=== PATIENT | female | born 2000 | race Caucasian/White ===

== ENCOUNTER 2023-11-19 20:38 | Emergency (ER) | payer OTHER ==
[2023-11-19 21:03] VITALS: TEMP 97.5
--- NOTE | 2023-11-19 21:04 | ERPHSYRPT ---
- History of Present Illness Time Seen by Provider: 11/19/23 21:03 Source: patient, family Exam Limitations: no limitations Physician History: This is a thin 23-year-old white female patient who presents to the emergency department with right upper quadrant pain that radiates around and through to her back. The pain is worse after eating. Patient has had no prior abdominal surgeries in the past. She has associated vomiting with this pain. Patient denies chest pain. Patient denies shortness of breath. Patient describes the pain as sharp and intermittent. Patient has never been in this emergency department in the past. She does have some anxiety issues. Patient is refusing any type of narcotics but would take an intravenous dose of Toradol. Timing/Duration: yesterday Method of Injury: other Quality: sharp (No injury), stabbing Severity of Pain-Max: mild (Moderate) Severity of Pain-Current: mild (To moderate) Modifying Factors: Improves With: nothing Associated Symptoms: vomiting Previous symptoms: no prior history, no recent treatment Allergies/Adverse Reactions: fentanyl Adverse Reaction (Mild, Verified 11/19/23 20:55) Rapid Heart Beat Home Medications: ALPRAZolam 0.25 MG [xanAX 0.25 MG] 0.25 mg PO DAILY PRN 11/19/23 [History] Travel Risk - International Travel Have you traveled outside of the country in past 3 weeks: No - Emerging Infectious Disease Are you exhibiting symptoms associated with any current EIDs: No - Vaccine Status Hx Covid Vaccintation/Booster/Date Given: No - Review of Systems Constitutional: No Symptoms Eyes: No Symptoms Ears, Nose, & Throat: No Symptoms Respiratory: No Symptoms Cardiac: No Symptoms Abdominal/Gastrointestinal: Abdominal Pain (Right upper quadrant), Nausea, Vomiting, Appetite Changes Genitourinary Symptoms: No Symptoms Musculoskeletal: No Symptoms Skin: No Symptoms Neurological: No Symptoms Psychological: No Symptoms Endocrine: No Symptoms Hematologic/Lymphatic: No Symptoms Immunological/Allergic: No Symptoms All Other Systems: Reviewed and Negative - Past Medical History Pertinent Past Medical History: No - Past Surgical History Past Surgical History: No - Nursing Vital Signs Nursing Vital Signs: Initial Vital Signs Temperature 97.5 F 11/19/23 20:55 Pulse Rate 100 H 11/19/23 20:55 Respiratory Rate 18 11/19/23 20:55 Blood Pressure 147/85 11/19/23 20:55 O2 Sat by Pulse Oximetry 99 11/19/23 20:55 Pain Scale Pain Intensity 7 - Physical Exam General Appearance: no apparent distress, alert, anxiety, thin Eye Exam: PERRL/EOMI, eyes nml inspection Ears, Nose, Throat Exam: normal ENT inspection, moist mucous membranes Neck Exam: normal inspection, non-tender, supple, full range of motion Respiratory Exam: normal breath sounds, lungs clear, airway intact, No chest tenderness, No respiratory distress Cardiovascular Exam: regular rate/rhythm, normal heart sounds, normal peripheral pulses Gastrointestinal Exam: soft, normal bowel sounds, tenderness (Right upper quadrant mild to palpation), No guarding, No rebound Pelvic Exam: not done Rectal Exam: not done Back Exam: normal inspection, normal range of motion, No CVA tenderness, No vertebral tenderness Extremity Exam: normal inspection, normal range of motion, pelvis stable Neurologic Exam: alert, oriented x 3, cooperative, gm video II-XII nml as tested, normal mood/affect, nml cerebellar function, nml station & gait, sensation nml Skin Exam: normal color, warm, dry Lymphatic Exam: No adenopathy SpO2 Interpretation: normal O2 Delivery: Room Air - Course Nursing assessment & vital signs reviewed: Yes Ordered Tests: Active Orders 24 hr Category Date Time Status IV Insertion STAT Care 11/19/23 21:20 Active ABDOMEN AND PELVIS W/0 CONTRAS [CT] Stat Exams 11/19/23 21:20 Completed AMYLASE Stat Lab 11/19/23 21:09 Completed CBC W DIFF Stat Lab 11/19/23 21:09 Completed CMP Stat Lab 11/19/23 21:09 Completed HCG QUALITATIVE, SERUM Stat Lab 11/19/23 21:09 Completed LIPASE Stat Lab 11/19/23 21:09 Completed UA W/RFX UR CULTURE Stat Lab 11/19/23 21:09 Completed Medication Summary Discontinued Medications Generic Name Dose Route Start Last Admin Trade Name Freq PRN Reason Stop Dose Admin Sodium Chloride 1,000 mls @ 999 mls/hr 11/19/23 21:20 11/19/23 22:48 Sodium Chloride 0.9% 1000 Ml IV 11/19/23 22:20 Infused .Q1H1M STA Infusion Sodium Chloride Confirm 11/19/23 21:33 Sodium Chloride 0.9% 1000 Ml Administered 11/19/23 21:34 Dose 1,000 mls @ ud .ROUTE .STK-MED ONE Ketorolac Tromethamine 30 mg 11/19/23 21:51 11/19/23 21:56 Ketorolac Tromethamine 30 Mg/Ml Inj IV 11/19/23 21:52 30 mg STAT ONE Administration Ketorolac Tromethamine Confirm 11/19/23 21:54 Ketorolac Tromethamine 30 Mg/Ml Inj Administered 11/19/23 21:55 Dose 30 mg .ROUTE .STK-MED ONE Ondansetron HCl 4 mg 11/19/23 21:20 11/19/23 21:38 Ondansetron Hcl 4 Mg/2 Ml Vial IV 11/19/23 21:21 4 mg STAT ONE Administration Ondansetron HCl Confirm 11/19/23 21:33 Ondansetron Hcl 4 Mg/2 Ml Vial Administered 11/19/23 21:34 Dose 4 mg .ROUTE .STK-MED ONE Lab/Rad Data: Laboratory Result Diagrams 11/19/23 21:09 11/19/23 21:09 Laboratory Results 11/19/23 11/19/23 11/19/23 Range/Units 21:09 21:09 21:09 WBC 2.9 L (4.0-10.5) x10^3/uL RBC 4.88 (4.1-5.4) x10^6/uL Hgb 11.9 L (12.0-16.0) g/dL Hct 38.7 (35-47) % MCV 79.3 (78-100) fL MCH 24.4 L (26-32) pg MCHC 30.7 L (32-36) g/dL RDW 16.2 H (11.5-14.0) % Plt Count 144 L (150-450) x10^3/uL MPV 11.6 H (7.5-11.0) fL Gran % 58.2 (36.0-66.0) % Immature Gran % (Auto) 0.0 (0.00-0.4) % Nucleat RBC Rel Count 0.0 (0.00-0.1) % Eos # (Auto) 0.05 (0-0.5) x10^3/uL Immature Gran # (Auto) 0.00 (0.00-0.03) x10^3u/L Absolute Lymphs (auto) 0.90 L (1.0-4.6) x10^3/uL Absolute Monos (auto) 0.23 (0.0-1.3) x10^3/uL Absolute Nucleated RBC 0.00 (0.00-0.01) x10^3u/L Lymphocytes % 31.1 (24.0-44.0) % Monocytes % 8.0 (0.0-12.0) % Eosinophils % 1.7 (0.00-5.0) % Basophils % 1.0 (0.0-0.4) % Absolute Granulocytes 1.68 (1.4-6.9) x10^3/uL Basophils # 0.03 (0-0.4) x10^3/uL Sodium 142 (135-145) mmol/L Potassium 3.6 (3.5-5.1) mmol/L Chloride 107 (98-107) mmol/L Carbon Dioxide 24 (22-30) mmol/L Anion Gap 14.5 (5-15) MEQ/L BUN 5 L (7-17) mg/dL Creatinine 0.63 (0.52-1.04) mg/dL Estimated GFR 127.0 ML/MIN Glucose 100 (74-106) mg/dL Calcium 9.2 (8.4-10.2) mg/dL Total Bilirubin 0.20 (0.2-1.3) mg/dL AST 28 (14-36) U/L ALT 23 (0-35) U/L Alkaline Phosphatase 77 (38-126) U/L Serum Total Protein 8.0 (6.3-8.2) g/dL Albumin 4.6 (3.5-5.0) g/dL Amylase 72 (30-110) U/L Lipase 72 (23-300) U/L Serum HCG, Qual NEGATIVE (NEGATIVE) Urine Color (Yellow) Urine Appearance (Clear) Urine pH (4.6-8.0) Ur Specific [place] (1.005-1.030) Urine Protein (Negative) Urine Glucose (UA) (Negative) mg/dL Urine Ketones (Negative) Urine Blood (Negative) Urine Nitrite (Negative) Urine Bilirubin (Negative) Urine Urobilinogen (0.2) mg/dL Ur Leukocyte Esterase (Negative) U Hyaline Cast (Auto) (0-2) /LPF Urine Microscopic RBC (0-5) /HPF Urine Microscopic WBC (0-5) /HPF Ur Epithelial Cells (None Seen) /HPF Urine Bacteria (None Seen) /HPF Urine Culture Reflexed (NO) 11/19/23 Range/Units 21:09 WBC (4.0-10.5) x10^3/uL RBC (4.1-5.4) x10^6/uL Hgb (12.0-16.0) g/dL Hct (35-47) % MCV (78-100) fL MCH (26-32) pg MCHC (32-36) g/dL RDW (11.5-14.0) % Plt Count (150-450) x10^3/uL MPV (7.5-11.0) fL Gran % (36.0-66.0) % Immature Gran % (Auto) (0.00-0.4) % Nucleat RBC Rel Count (0.00-0.1) % Eos # (Auto) (0-0.5) x10^3/uL Immature Gran # (Auto) (0.00-0.03) x10^3u/L Absolute Lymphs (auto) (1.0-4.6) x10^3/uL Absolute Monos (auto) (0.0-1.3) x10^3/uL Absolute Nucleated RBC (0.00-0.01) x10^3u/L Lymphocytes % (24.0-44.0) % Monocytes % (0.0-12.0) % Eosinophils % (0.00-5.0) % Basophils % (0.0-0.4) % Absolute Granulocytes (1.4-6.9) x10^3/uL Basophils # (0-0.4) x10^3/uL Sodium (135-145) mmol/L Potassium (3.5-5.1) mmol/L Chloride (98-107) mmol/L Carbon Dioxide (22-30) mmol/L Anion Gap (5-15) MEQ/L BUN (7-17) mg/dL Creatinine (0.52-1.04) mg/dL Estimated GFR ML/MIN Glucose (74-106) mg/dL Calcium (8.4-10.2) mg/dL Total Bilirubin (0.2-1.3) mg/dL AST (14-36) U/L ALT (0-35) U/L Alkaline Phosphatase (38-126) U/L Serum Total Protein (6.3-8.2) g/dL Albumin (3.5-5.0) g/dL Amylase (30-110) U/L Lipase (23-300) U/L Serum HCG, Qual (NEGATIVE) Urine Color Yellow (Yellow) Urine Appearance Clear (Clear) Urine pH 8.0 (4.6-8.0) Ur Specific [place] <=1.005 (1.005-1.030) Urine Protein Negative (Negative) Urine Glucose (UA) Negative (Negative) mg/dL Urine Ketones Negative (Negative) Urine Blood Negative (Negative) Urine Nitrite Negative (Negative) Urine Bilirubin Negative (Negative) Urine Urobilinogen 0.2 (0.2) mg/dL Ur Leukocyte Esterase Negative (Negative) U Hyaline Cast (Auto) NONE SEEN (0-2) /LPF Urine Microscopic RBC 0-2 (0-5) /HPF Urine Microscopic WBC 0-2 (0-5) /HPF Ur Epithelial Cells None Seen (None Seen) /HPF Urine Bacteria None Seen (None Seen) /HPF Urine Culture Reflexed NO (NO) - Progress Progress: improved, pain not gone completely, re-examined Progress Note: 11/19/23 23:08 This patient medical issue is 1 of moderate complexity. The level complex in the workup performed is based on review the patient's past medical history, review the patient's medication list, review patient drug allergy list, history present illness and physical findings on examination. Workup includes placement of intravenous line, infusion Normal Saline solution, infusion of Zofran, infusion of Toradol, CBC, CMP, test, urinalysis, amylase and lipase level, CT scan abdomen pelvis without contrast. 11/19/23 23:51 I interpreted the laboratory data test results. Patient's liver function test, amylase and lipase are within normal limits. Her urinalysis shows no evidence of dehydration or infection. She does have unexplained leukopenia and thrombocytopenia. There is no acute or emergent findings on today's laboratory data results. I reviewed these findings with the patient and she will follow-up on the leukopenia and thrombocytopenia test results. CT scan of the abdomen and pelvis without contrast was performed and interpreted by the radiologist and I reviewed the impression. The impression states no significant acute abnormalities. The gallbladder is not visualized.? Contracted gallbladder. The appendix is not visualized but there are no prominent inflammatory changes within the right lower quadrant. Counseled pt/family regarding: lab results, diagnosis, need for follow-up, rad results Medical Desision Making - Independent Historian Additional History obtained from: Spouse - Diagnostic Testing Radiological Interpretation: Reviewed by me, Teleradiologist Report - Risk of complications The pt has a mod risk of morbidity or mortality based on: Need for prescription drug management - Departure Departure Disposition: Home Clinical Impression: Right upper quadrant abdominal pain, Nausea, Leukopenia, Thrombocytopenia Condition: Stable Critical Care Time: No Referrals: PRATIBHA MALDONADO SKI MAKER [Primary Care Provider] - Follow up/PCP as directed Additional Instructions: Drink plenty of fluids. Avoid fatty greasy spicy foods. Use Tylenol and ibuprofen for pain control. Call your primary care provider on 11/22/2023, to make arranges for follow-up appointment for further evaluation management in the next 3 to 5 days.
[2023-11-19 21:32] LABS: Appearance Clear (Clear); Bacteria None Seen /HPF (None Seen); Bilirubin Negative (Negative); Blood Negative (Negative); Epithelial Cells None Seen /HPF (None Seen); Glucose, Urine Negative (Negative); Hyaline Casts NONE SEEN /LPF (0-2); Ketones Negative (Negative); Leukocyte Esterase Negative (Negative); Nitrite Negative (Negative); Protein,Urine Dip Negative (Negative); RBC 0-2 /HPF (0-5); Specific Gravity <=1.005 (1.005-1.030); Urobilinogen 0.2 mg/dL (0.2); WBC 0-2 /HPF (0-5)
[2023-11-19] MEDS ORDERED: Sodium Chloride 0.9% 1000 ML 1,000 ML ONE (21:33)
[2023-11-19] MEDS ORDERED: Zofran 4 MG/2 ML VIAL ONE (21:33)
[2023-11-19] MEDS: Sodium Chloride 0.9% 1000 ML 1,000 ML IV STA (21:37)
[2023-11-19] MEDS: Zofran 4 MG/2 ML VIAL IV ONE (21:38)
[2023-11-19 21:39] LABS: Absolute Neutrophil Ct (ANC) 1.68 x10^3/uL (1.4-6.9); Basophil (Absolute #) 0.03 x10^3/uL (0-0.4); Eosinophil % 1.7 % (0.00-5.0); Eosinophil (Absolute #) 0.05 x10^3/uL (0-0.5); Hematocrit 38.7 % (35-47); Hemoglobin 11.9 g/dL (12.0-16.0); Lymphocytes % 31.1 % (24.0-44.0); Mean Cell Volume 79.3 fL (78-100); Mean Corpuscular Hemoglobin 24.4 pg (26-32); Mean Corpuscular Hgb Concent. 30.7 g/dL (32-36); Mean Platelet Volume 11.6 fL (7.5-11.0); Monocyte (Absolute #) 0.23 x10^3/uL (0.0-1.3); Neutrophil % 58.2 % (36.0-66.0); Platelet Count 144 x10^3/uL (150-450); Red Blood Count 4.88 x10^6/uL (4.1-5.4); Red Cell Distribution Width 16.2 % (11.5-14.0); White Blood Count 2.9 x10^3/uL (4.0-10.5)
[2023-11-19 21:40] LABS: ADD URINE CULTURE? NO (NO)
[2023-11-19 21:45] VITALS: RESP 17
[2023-11-19 21:50] LABS: ALBUMIN 4.6 g/dL (3.5-5.0); ANION GAP 14.5 MEQ/L (5-15); BILIRUBIN,TOTAL 0.2 mg/dL (0.2-1.3); Calcium 9.2 mg/dL (8.4-10.2); Creatinine 1 0.63 mg/dL (0.52-1.04); Potassium 3.6 mmol/L (3.5-5.1)
[2023-11-19] MEDS ORDERED: TORAdol 30 mg Injection ONE (21:54)
[2023-11-19] MEDS: TORAdol 30 mg Injection IV ONE (21:56)
[2023-11-19 21:58] LABS: HCG SERUM TEST NEGATIVE (NEGATIVE)
--- NOTE | 2023-11-19 22:58 | XRAY ---
CLINICAL HISTORY: RUQ ABD pain; N/V TECHNIQUE: A CT scan of the abdomen was performed without IV contrast, Coronal and sagittal reconstructive images were also obtained. One of the following dose reduction techniques were utilized for this exam: Automated exposure control, adjustment of the mA and/or kV according to patient size, use of iterative reconstruction COMPARISON: None FINDINGS: Limited organ parenchymal evaluation within the limitations of non-contrast study. Lung bases are unremarkable. The liver is normal in size without focal parenchymal abnormality. The intrahepatic biliary radicals and the bile ducts are normal. Gallbladder is not identified, possibly contracted. The spleen, pancreas, and adrenal glands are unremarkable. The kidneys are unremarkable. They are normal in size and shape. No calculi or hydronephrosis is seen. The ascending colon, the transverse colon, the descending colon, visualized small bowel loops are unremarkable. There is no evidence of significant enlargement of the mesenteric or retroperitoneal lymph nodes. The osseous structures in the lower rib cage and lumbar spine show no abnormality. The appendix is not identified however there is no prominent inflammation findings on the right lower quadrant. Pelvis: The urinary bladder is unremarkable. The rectosigmoid colon is unremarkable. The uterus and ovaries are grossly unremarkable. The pelvic vasculature is unremarkable. No evidence of pelvic lymphadenopathy. No definite bony abnormalities could be depicted. IMPRESSION: 1. No significant acute abnormalities seen. 2. The appendix is not identified in the current study, and although there are no prominent inflammation findings within the right lower quadrant, ultrasound may be considered if there is a clinical suspicion. Electronically Signed by: Gely Perdomo MD. (11/19/2023 22:53:56 EDT)
[2023-11-19 23:28] VITALS: O2SAT 99
[2023-11-20 00:03] VITALS: BP 101/75; PULSE 82
== END 2023-11-20 00:18 | disposition home or self-care (01) ==
LOC: ED 20:38
DX: R10.11 Right upper quadrant pain (principal); R11.0 Nausea; D72.819 Decreased white blood cell count, unspecified; D69.6 Thrombocytopenia, unspecified; Z79.899 Other long term (current) drug therapy; Z28.310 Unvaccinated for COVID-19
CPT/HCPCS: 36000; 36415; 74176; 80053; 81001; 82150; 83690; 84703; 85025; 96374; 96375; 99284; J1885; J2405

== ENCOUNTER 2024-01-10 19:58 | Emergency (ER) | payer OTHER ==
--- NOTE | 2024-01-10 20:05 | ERPHSYRPT ---
- History of Present Illness Time Seen by Provider: 01/10/24 20:04 Source: patient Exam Limitations: no limitations Physician History: This is a thin 23-year-old white female patient who presents with left rib pain for approximately 6 days. Patient denies fall or trauma to the area. Patient does have a history anxiety issue. She is a former smoker of cigarettes. She denies cough. She denies shortness of breath. She has no chest pain. She has been having intermittent fevers. Patient has difficulty swallowing even average sized tablets/capsules Timing/Duration: day(s) (6) Severity: mild Modifying Factors: Improves With: movement (Moderate) Associated Symptoms: denies symptoms Allergies/Adverse Reactions: fentanyl Adverse Reaction (Mild, Verified 01/10/24 20:10) Rapid Heart Beat Home Medications: ALPRAZolam 0.25 MG [xanAX 0.25 MG] 0.25 mg PO DAILY PRN 11/19/23 [History] Esomeprazole Magnesium [Nexium] 20 mg PO DAILY 01/10/24 [History] Famotidine 20 mg PO DAILY 01/10/24 [History] Hx Tetanus, Diphtheria Vaccination/Date Given: No Hx Influenza Vaccination/Date Given: No Hx Pneumococcal Vaccination/Date Given: No Travel Risk - Emerging Infectious Disease Are you exhibiting symptoms associated with any current EIDs: No Symptoms: Abdominal Pain, Vomitting - Review of Systems Constitutional: No Symptoms Eyes: No Symptoms Ears, Nose, & Throat: No Symptoms Respiratory: No Symptoms Cardiac: No Symptoms Abdominal/Gastrointestinal: No Symptoms Genitourinary Symptoms: No Symptoms Musculoskeletal: No Symptoms Skin: No Symptoms Neurological: No Symptoms Psychological: No Symptoms Endocrine: No Symptoms Hematologic/Lymphatic: No Symptoms Immunological/Allergic: No Symptoms All Other Systems: Reviewed and Negative - Past Medical History Pertinent Past Medical History: No Neurological History: No Pertinent History ENT History: No Pertinent History Cardiac History: Arrhythmia Respiratory History: Asthma Endocrine Medical History: No Pertinent History Musculoskeletal History: No Pertinent History GI Medical History: GERD, Irritable Bowel History: No Pertinent History Psycho-Social History: Anxiety, Bipolar, Panic Disorder Female Reproductive Disorders: No Pertinent History Other Medical History: anemia, tachycardia, PTSD - Past Surgical History Past Surgical History: No Neuro Surgical History: No Pertinent History Cardiac: No Pertinent History Respiratory: No Pertinent History Gastrointestinal: No Pertinent History Genitourinary: No Pertinent History Musculoskeletal: No Pertinent History Female Surgical History: No Pertinent History Other Surgical History: endoscopy - Social History Smoking Status: Former smoker Exposure to second hand smoke: Yes Drug Use: none - Nursing Vital Signs Nursing Vital Signs: Initial Vital Signs Temperature 99.2 F 01/10/24 20:13 Pulse Rate 102 H 01/10/24 20:13 Respiratory Rate 14 01/10/24 20:13 Blood Pressure 130/88 01/10/24 20:13 O2 Sat by Pulse Oximetry 100 01/10/24 20:13 Pain Scale Pain Intensity 7 - Physical Exam General Appearance: no apparent distress, alert, anxiety, thin Eye Exam: PERRL/EOMI, eyes nml inspection Ears, Nose, Throat Exam: normal ENT inspection, moist mucous membranes Neck Exam: normal inspection, non-tender, supple, full range of motion Respiratory Exam: normal breath sounds, lungs clear, airway intact, No chest tenderness, No respiratory distress Cardiovascular Exam: regular rate/rhythm, normal heart sounds, normal peripheral pulses Gastrointestinal/Abdomen Exam: soft, normal bowel sounds, No tenderness, No guarding Pelvic Exam: not done Rectal Exam: not done Back Exam: normal inspection, normal range of motion, No CVA tenderness, No vertebral tenderness Extremity Exam: normal inspection, normal range of motion, pelvis stable Neurologic Exam: alert, oriented x 3, cooperative, ceramic restorer II-XII nml as tested, nml cerebellar function, nml station & gait, sensation nml Skin Exam: normal color, warm, dry Lymphatic Exam: No adenopathy SpO2 Interpretation: normal O2 Delivery: Room Air - Course Nursing assessment & vital signs reviewed: Yes Ordered Tests: Active Orders 24 hr Category Date Time Status CHEST 2 VIEWS (PA AND LAT) Stat Exams 01/10/24 21:42 Taken Medication Summary Discontinued Medications Generic Name Dose Route Start Last Admin Trade Name Freq PRN Reason Stop Dose Admin Amoxicillin 500 mg 01/10/24 23:09 Amoxicillin Trihydrate 250 Mg/5 Ml Bottle PO 01/10/24 23:10 STAT ONE Ketorolac Tromethamine 10 mg 01/10/24 23:10 Ketorolac Tromethamine 10 Mg Tablet PO 01/10/24 23:11 STAT ONE Ondansetron HCl 4 mg 01/10/24 23:10 Zofran 4 Mg/Udtablet Orally Disintegrating PO 01/10/24 23:11 STAT ONE - Progress Progress: unchanged, pain not gone completely, re-examined Progress Note: 01/10/24 22:34 My medical decision making and the assignment of low complexity to this patient's medical issue today is based on review of the patient's past medical history, review of patient's medication list, reviewed patient's drug allergy list, history present illness and physical findings on examination. The workup in this patient includes 2 view chest x-ray. The differential diagnosis includes pneumonia, rib fracture, rib contusion. 01/10/24 23:12 I interpreted the patient's chest x-ray. I do not appreciate any rib fractures. There is no evidence of pneumothorax. There is no acute cardiopulmonary processes. This patient has had intermittent fevers and has left lower rib pain. She also has intermittent, chronic vomiting episodes. She is out of her Zofran. We will remotely send a prescription of Zofran, Toradol and amoxicillin suspension to her pharmacy. Counseled pt/family regarding: diagnosis, need for follow-up, rad results Medical Desision Making - Diagnostic Testing Diagnostic test were ordered, analyzed, and reviewed by me: Yes Radiological Interpretation: Interpreted by me - Risk of complications The pt has a mod risk of morbidity or mortality based on: Need for prescription drug management - Departure Departure Disposition: Home Clinical Impression: Fever, Vomiting, Rib pain on left side Condition: Stable Critical Care Time: No Referrals: PRATIBHA MALDONADO [employer] SEAMAN [Primary Care Provider] - Follow up/PCP as directed Additional Instructions: Drink plenty of clear liquids. Take your medications as prescribed. Call your prescribing provider tomorrow, 01/11/2024, to make arrangements for further evaluation and management and to be seen in approximately 3 to 5 days Prescriptions: Ondansetron ODT 4 MG [Zofran Odt 4 mg] 4 mg PO Q6H PRN PRN #10 tablet PRN Reason: Vomiting Amoxicillin 250 mg/5 ml [Amoxil 250 mg/5 ml] 500 mg PO TID #210 ml Ketorolac Trometh 10 mg Tab [TORAdol 10 MG TABLET] 10 mg PO QID #16 tablet
[2024-01-10 20:21] VITALS: RESP 14; TEMP 99.2
[2024-01-10] MEDS ORDERED: AMOXIL 250 MG/5 ML ONE (23:14)
[2024-01-10] MEDS ORDERED: ZOFRAN ODT 4 MG ONE (23:14)
[2024-01-10] MEDS: ZOFRAN ODT 4 MG PO ONE (23:20)
[2024-01-10] MEDS: AMOXIL 250 MG/5 ML PO ONE (23:20)
[2024-01-10] MEDS: TORAdol 10 MG TABLET PO ONE (23:26)
[2024-01-10 23:31] VITALS: BP 124/82; PULSE 84; O2SAT 100
--- NOTE | 2024-01-11 07:56 | XRAY ---
Indication: Rib pain Comparison: None PA/lateral chest hyperinflated and clear. Heart and mediastinal structures within normal limits. Bony thorax intact with mild levoscoliosis centered at T4. Impression: Nonacute hyperinflated chest. Incidental scoliosis.
== END 2024-01-10 23:42 | disposition home or self-care (01) ==
LOC: ED 19:58
DX: R50.9 Fever, unspecified (principal); R11.2 Nausea with vomiting, unspecified; R07.81 Pleurodynia; Z79.899 Other long term (current) drug therapy
CPT/HCPCS: 71046; 99283; Q0162; A9270-GY

== ENCOUNTER 2024-07-06 19:34 | Emergency (ER) | payer OTHER ==
[2024-07-06 19:58] VITALS: TEMP 97.7
[2024-07-06] MEDS ORDERED: Sodium Chloride 0.9% 1000 ML 1,000 ML ONE (20:08)
[2024-07-06] MEDS: Sodium Chloride 0.9% 1000 ML 1,000 ML IV STA (20:09)
--- NOTE | 2024-07-06 20:10 | ERPHSYRPT ---
- History of Present Illness Time Seen by Provider: 07/06/24 20:04 Source: patient Exam Limitations: no limitations Patient Subjective Stated Complaint: dizziness, tachycardia x3 days, pt states she is dizzy all time but worse when standing up. pt states she is normally ta chycardiac in the 110s but states her HR has been in the 140s, pt states she is eating and drinking normally, pt states she is bruising "a lot easier than normal" and has been low on iron before and believes that is what is causing her symptoms, pt has had iron infusions in the past. pt ended her period about 2 days and stated she had heavy bleeding throughout the cycle Triage Nursing Assessment: pt ambulatory to bed by self, fiance at bedside, pt alert and oriented x3, skin pale, warm and dry. pt denies any pain, c/o dizziness worse with movment. HR 90-110s during triage. afebrile, fsbs 102 Physician History: 24-year-old female presents to emergency department complaining of some dizziness. Patient states dizziness is worse upon transition, sit to stand. Patient states she has a history of POTS. Patient reports a baseline level tachycardia however she states her heart rate has been higher than normal. Heart rate has been up in the 140s which is unusual for her. No chest pain or shortness of breath. No history of thyroid disease. Patient admits to history of iron deficiency anemia. Patient also reports that she just completed a heavy menstrual cycle. Patient concerned with the amount of blood loss contributing to her current symptomology. Patient added that she had noticed increased bruising in her lower extremities. No other complaints. Patient otherwise feels well significant other at bedside they voiced no other complaints or concerns at this time. Portions of this note were created with voice recognition technology. There may be grammatical, spelling, punctuation or sound alike errors Timing/Duration: day(s) (3 days) Severity: moderate Modifying Factors: Improves With: nothing Associated Symptoms: denies symptoms Allergies/Adverse Reactions: fentanyl Adverse Reaction (Mild, Verified 07/06/24 19:48) Rapid Heart Beat Home Medications: ALPRAZolam 0.25 MG [xanAX 0.25 MG] 0.25 mg PO DAILY PRN 11/19/23 [History] Omeprazole 20 mg PO DAILY 07/06/24 [History] Hx Tetanus, Diphtheria Vaccination/Date Given: Yes Hx Influenza Vaccination/Date Given: No Hx Pneumococcal Vaccination/Date Given: No Travel Risk - International Travel Have you traveled outside of the country in past 3 weeks: No - Emerging Infectious Disease Are you exhibiting symptoms associated with any current EIDs: No Symptoms: Abdominal Pain, Vomitting - Review of Systems Constitutional: No Symptoms, No Fever, No Chills Eyes: No Symptoms Ears, Nose, & Throat: No Symptoms Respiratory: No Symptoms, No Cough, No Dyspnea Cardiac: No Symptoms, No Chest Pain, No Edema, No Syncope Abdominal/Gastrointestinal: No Symptoms, No Abdominal Pain, No Nausea, No Vomiting, No Diarrhea Genitourinary Symptoms: No Symptoms, No Dysuria Musculoskeletal: No Symptoms, No Back Pain, No Neck Pain Skin: No Symptoms, No Rash Neurological: No Symptoms, No Dizziness, No Focal Weakness, No Sensory Changes Psychological: No Symptoms Endocrine: No Symptoms Hematologic/Lymphatic: No Symptoms Immunological/Allergic: No Symptoms All Other Systems: Reviewed and Negative - Past Medical History Pertinent Past Medical History: Yes Neurological History: No Pertinent History ENT History: No Pertinent History Cardiac History: Arrhythmia Respiratory History: Asthma Endocrine Medical History: Hypoglycemia Musculoskeletal History: No Pertinent History GI Medical History: GERD, Irritable Bowel History: No Pertinent History Psycho-Social History: Anxiety, Bipolar, Panic Disorder Female Reproductive Disorders: No Pertinent History Other Medical History: anemia, tachycardia, PTSD, nutcracker syndrome - Past Surgical History Past Surgical History: No Neuro Surgical History: No Pertinent History Cardiac: No Pertinent History Respiratory: No Pertinent History Gastrointestinal: No Pertinent History Genitourinary: No Pertinent History Musculoskeletal: No Pertinent History Female Surgical History: No Pertinent History Other Surgical History: endoscopy - Female History Hx Last Menstrual Period: 07/04/24 Hx Now: No - Social History Smoking Status: Current every day smoker Exposure to second hand smoke: Yes Drug Use: none - Social Determinants of Health Will the patient participate in the screening: Declined to provide - Nursing Vital Signs Nursing Vital Signs: Initial Vital Signs Temperature 97.7 F 07/06/24 19:48 Pulse Rate 107 H 07/06/24 19:48 Respiratory Rate 17 07/06/24 19:48 Blood Pressure 129/93 07/06/24 19:48 O2 Sat by Pulse Oximetry 100 07/06/24 19:48 Pain Scale Pain Intensity 0 - Physical Exam General Appearance: no apparent distress, alert Eye Exam: PERRL/EOMI, eyes nml inspection Ears, Nose, Throat Exam: normal ENT inspection, TMs normal, pharynx normal, moist mucous membranes Neck Exam: normal inspection, non-tender, supple, full range of motion Respiratory Exam: normal breath sounds, lungs clear, airway intact, No respiratory distress Cardiovascular Exam: regular rate/rhythm, normal heart sounds, normal peripheral pulses Gastrointestinal/Abdomen Exam: soft, normal bowel sounds, No tenderness, No mass Back Exam: normal inspection, normal range of motion, No CVA tenderness, No vertebral tenderness Extremity Exam: normal inspection, normal range of motion, pelvis stable, other (Healing bruises anterior freeman area and at the dorsum of her right foot. Extremities are neurovascular intact distally compartments are soft cap refill less than 2 seconds) Neurologic Exam: alert, oriented x 3, cooperative, normal mood/affect, nml cerebellar function, nml station & gait, sensation nml, No motor deficits Skin Exam: normal color, warm, dry, No rash Lymphatic Exam: No adenopathy SpO2 Interpretation: normal SpO2: 100 O2 Delivery: Room Air - Course Nursing assessment & vital signs reviewed: Yes EKG Interpreted by Me: RATE (95), Sinus Rhythm, NORMAL AXIS, NORMAL INTERVALS, NORMAL QRS Ordered Tests: Active Orders 24 hr Category Date Time Status Mobility Developer STAT Care 07/06/24 20:05 Active EKG-ER Only STAT Care 07/06/24 20:05 Active IV Insertion STAT Care 07/06/24 20:05 Active Pulse Oximetry (ED) STAT Care 07/06/24 20:05 Active CBC W DIFF Stat Lab 07/06/24 20:21 Completed CMP Stat Lab 07/06/24 20:21 Completed POCT GLUCOSE Stat Lab 07/06/24 19:52 Completed PROTIME WITH INR Stat Lab 07/06/24 20:21 Completed PTT Stat Lab 07/06/24 20:21 Completed TROPONIN Q4H Lab 07/06/24 20:21 Completed TROPONIN Q4H Lab 07/07/24 00:15 Ordered TROPONIN Q4H Lab 07/07/24 04:15 Ordered TROPONIN Stat Lab 07/06/24 21:55 Completed TSH [TSH, 3RD Generation] Stat Lab 07/06/24 20:21 Completed UA W/RFX UR CULTURE Stat Lab 07/06/24 20:08 Completed Medication Summary Discontinued Medications Generic Name Dose Route Start Last Admin Trade Name Bianca PRN Reason Stop Dose Admin Sodium Chloride 1,000 mls @ 999 mls/hr 07/06/24 20:05 07/06/24 21:10 Sodium Chloride 0.9% 1000 Ml IV 07/06/24 21:05 Infused .Q1H1M STA Infusion Sodium Chloride Confirm 07/06/24 20:08 Sodium Chloride 0.9% 1000 Ml Administered 07/06/24 20:09 Dose 1,000 mls @ ud .ROUTE .STK-MED ONE Potassium Chloride 40 meq 07/06/24 21:47 07/06/24 21:57 Potassium Chloride Tab 10 Meq Tab PO 07/06/24 21:48 40 meq STAT ONE Administration Potassium Chloride Confirm 07/06/24 21:56 Potassium Chloride Tab 10 Meq Tab Administered 07/06/24 21:57 Dose 40 meq .ROUTE .STK-MED ONE Lab/Rad Data: Laboratory Result Diagrams 07/06/24 20:21 07/06/24 20:21 Laboratory Results 07/06/24 07/06/24 07/06/24 Range/Units 21:55 20:21 20:21 WBC (3.98-10.04) x10^3/uL RBC (3.93-5.22) x10^6/uL Hgb (11.2-15.7) g/dL Hct (34.1-44.9) % MCV (79.4-94.8) fL MCH (25.6-32.2) pg MCHC (32.2-35.5) g/dL RDW (11.7-14.4) % Plt Count (182-369) x10^3/uL MPV (9.4-12.3) fL Gran % (34.0-71.1) % Immature Gran % (Auto) (0.001-0.429) % Nucleat RBC Rel Count (0.00-0.2) % Eos # (Auto) (0.04-0.36) x10^3/uL Immature Gran # (Auto) (0.001-0.031) x10^3u/L Absolute Lymphs (auto) (1.18-3.74) x10^3/uL Absolute Monos (auto) (0.24-0.86) x10^3/uL Absolute Nucleated RBC (0.00-0.012) x10^3u/L Lymphocytes % (19.3-51.7) % Monocytes % (4.7-12.5) % Eosinophils % (0.7-5.8) % Basophils % (0.1-1.2) % Absolute Granulocytes (1.56-6.13) x10^3/uL Basophils # (0.01-0.08) x10^3/uL PT 11.9 (9.4-12.5) SECONDS INR 1.10 (0.8-3.0) APTT 28.8 (25.1-36.5) SECONDS Sodium (135-145) mmol/L Potassium (3.5-5.1) mmol/L Chloride (98-107) mmol/L Carbon Dioxide (22-30) mmol/L Anion Gap (5-15) MEQ/L BUN (7-17) mg/dL Creatinine (0.52-1.04) mg/dL Estimated GFR ML/MIN Glucose (74-106) mg/dL POC Glucometer (74 to 106) mg/dL Calcium (8.4-10.2) mg/dL Total Bilirubin (0.2-1.3) mg/dL AST (14-36) U/L ALT (0-35) U/L Alkaline Phosphatase (38-126) U/L Troponin I < 0.012 (0.000-0.033) ng/mL Serum Total Protein (6.3-8.2) g/dL Albumin (3.5-5.0) g/dL TSH 3rd Generation 1.749 (0.470-4.680) mIU/L Urine Color (Yellow) Urine Appearance (Clear) Urine pH (4.6-8.0) Ur Specific [place] (1.005-1.030) Urine Protein (Negative) Urine Glucose (UA) (Negative) mg/dL Urine Ketones (Negative) Urine Blood (Negative) Urine Nitrite (Negative) Urine Bilirubin (Negative) Urine Urobilinogen (0.2) mg/dL Ur Leukocyte Esterase (Negative) U Hyaline Cast (Auto) (0-2) /LPF Urine Microscopic RBC (0-5) /HPF Urine Microscopic WBC (0-5) /HPF Ur Epithelial Cells (None Seen) /HPF Urine Bacteria (None Seen) /HPF Urine Culture Reflexed (NO) 07/06/24 07/06/24 07/06/24 Range/Units 20:21 20:21 20:21 WBC 4.2 (3.98-10.04) x10^3/uL RBC 4.83 (3.93-5.22) x10^6/uL Hgb 12.6 (11.2-15.7) g/dL Hct 39.5 (34.1-44.9) % MCV 81.8 (79.4-94.8) fL MCH 26.1 (25.6-32.2) pg MCHC 31.9 L (32.2-35.5) g/dL RDW 12.8 (11.7-14.4) % Plt Count 157 L (182-369) x10^3/uL MPV 12.5 H (9.4-12.3) fL Gran % 49.6 (34.0-71.1) % Immature Gran % (Auto) 0.0 L (0.001-0.429) % Nucleat RBC Rel Count 0.0 (0.00-0.2) % Eos # (Auto) 0.23 (0.04-0.36) x10^3/uL Immature Gran # (Auto) 0.00 L (0.001-0.031) x10^3u/L Absolute Lymphs (auto) 1.47 (1.18-3.74) x10^3/uL Absolute Monos (auto) 0.37 (0.24-0.86) x10^3/uL Absolute Nucleated RBC 0.00 (0.00-0.012) x10^3u/L Lymphocytes % 35.3 (19.3-51.7) % Monocytes % 8.9 (4.7-12.5) % Eosinophils % 5.5 (0.7-5.8) % Basophils % 0.7 (0.1-1.2) % Absolute Granulocytes 2.06 (1.56-6.13) x10^3/uL Basophils # 0.03 (0.01-0.08) x10^3/uL PT (9.4-12.5) SECONDS INR (0.8-3.0) APTT (25.1-36.5) SECONDS Sodium 141 (135-145) mmol/L Potassium 3.3 L (3.5-5.1) mmol/L Chloride 106 (98-107) mmol/L Carbon Dioxide 24 (22-30) mmol/L Anion Gap 14.0 (5-15) MEQ/L BUN 4 L (7-17) mg/dL Creatinine 0.63 (0.52-1.04) mg/dL Estimated GFR 126.2 ML/MIN Glucose 101 (74-106) mg/dL POC Glucometer (74 to 106) mg/dL Calcium 9.5 (8.4-10.2) mg/dL Total Bilirubin 0.30 (0.2-1.3) mg/dL AST 26 (14-36) U/L ALT 19 (0-35) U/L Alkaline Phosphatase 70 (38-126) U/L Troponin I < 0.012 (0.000-0.033) ng/mL Serum Total Protein 8.1 (6.3-8.2) g/dL Albumin 4.9 (3.5-5.0) g/dL TSH 3rd Generation (0.470-4.680) mIU/L Urine Color (Yellow) Urine Appearance (Clear) Urine pH (4.6-8.0) Ur Specific [place] (1.005-1.030) Urine Protein (Negative) Urine Glucose (UA) (Negative) mg/dL Urine Ketones (Negative) Urine Blood (Negative) Urine Nitrite (Negative) Urine Bilirubin (Negative) Urine Urobilinogen (0.2) mg/dL Ur Leukocyte Esterase (Negative) U Hyaline Cast (Auto) (0-2) /LPF Urine Microscopic RBC (0-5) /HPF Urine Microscopic WBC (0-5) /HPF Ur Epithelial Cells (None Seen) /HPF Urine Bacteria (None Seen) /HPF Urine Culture Reflexed (NO) 07/06/24 07/06/24 Range/Units 20:08 19:52 WBC (3.98-10.04) x10^3/uL RBC (3.93-5.22) x10^6/uL Hgb (11.2-15.7) g/dL Hct (34.1-44.9) % MCV (79.4-94.8) fL MCH (25.6-32.2) pg MCHC (32.2-35.5) g/dL RDW (11.7-14.4) % Plt Count (182-369) x10^3/uL MPV (9.4-12.3) fL Gran % (34.0-71.1) % Immature Gran % (Auto) (0.001-0.429) % Nucleat RBC Rel Count (0.00-0.2) % Eos # (Auto) (0.04-0.36) x10^3/uL Immature Gran # (Auto) (0.001-0.031) x10^3u/L Absolute Lymphs (auto) (1.18-3.74) x10^3/uL Absolute Monos (auto) (0.24-0.86) x10^3/uL Absolute Nucleated RBC (0.00-0.012) x10^3u/L Lymphocytes % (19.3-51.7) % Monocytes % (4.7-12.5) % Eosinophils % (0.7-5.8) % Basophils % (0.1-1.2) % Absolute Granulocytes (1.56-6.13) x10^3/uL Basophils # (0.01-0.08) x10^3/uL PT (9.4-12.5) SECONDS INR (0.8-3.0) APTT (25.1-36.5) SECONDS Sodium (135-145) mmol/L Potassium (3.5-5.1) mmol/L Chloride (98-107) mmol/L Carbon Dioxide (22-30) mmol/L Anion Gap (5-15) MEQ/L BUN (7-17) mg/dL Creatinine (0.52-1.04) mg/dL Estimated GFR ML/MIN Glucose (74-106) mg/dL POC Glucometer 102 (74 to 106) mg/dL Calcium (8.4-10.2) mg/dL Total Bilirubin (0.2-1.3) mg/dL AST (14-36) U/L ALT (0-35) U/L Alkaline Phosphatase (38-126) U/L Troponin I (0.000-0.033) ng/mL Serum Total Protein (6.3-8.2) g/dL Albumin (3.5-5.0) g/dL TSH 3rd Generation (0.470-4.680) mIU/L Urine Color Yellow (Yellow) Urine Appearance Clear (Clear) Urine pH 7.0 (4.6-8.0) Ur Specific [place] <=1.005 (1.005-1.030) Urine Protein Negative (Negative) Urine Glucose (UA) Negative (Negative) mg/dL Urine Ketones Negative (Negative) Urine Blood Negative (Negative) Urine Nitrite Negative (Negative) Urine Bilirubin Negative (Negative) Urine Urobilinogen 0.2 (0.2) mg/dL Ur Leukocyte Esterase Negative (Negative) U Hyaline Cast (Auto) NONE SEEN (0-2) /LPF Urine Microscopic RBC 0-2 (0-5) /HPF Urine Microscopic WBC 0-2 (0-5) /HPF Ur Epithelial Cells None Seen (None Seen) /HPF Urine Bacteria None Seen (None Seen) /HPF Urine Culture Reflexed NO (NO) - Progress Progress: improved Progress Note: 24-year-old female presents to emergency department for evaluation of dizziness worse with transition from sit to stand. Patient was tachycardic. Patient just completed a heavy menstrual cycle. Patient believes she is dehydrated. Patient received a liter of fluids. Dizziness resolved tachycardia resolved orthostatics checked. Patient negative for orthostasis after administration of IV fluids. Patient is currently asymptomatic states he is ready for discharge. Repeat neuroexam within normal limits. Patient voices no other complaints or concerns at this time. She agrees to follow-up with her primary care doctor within 48 hours for reevaluation. Patient was concerned with bruising of her legs. However the bruising pattern observed is not concerning as it appears to be over bony prominences only. Patient's coagulation profile is normal. Platelets platelets are 157,000 Portions of this note were created with voice recognition technology. There may be grammatical, spelling, punctuation or sound alike errors Complexity problem addressed is moderate acute complicated no critical care time. Complex of data reviewed and analyzed is moderate. Test ordered chest reviewed results analyzed and correlated clinically with history and physical exam. Risk of complication and or risk of morbidity/mortality of patient management is low. Vital stable. Time spent to discharge patient is approximately 15 minutes. Plan of care established for shared decision making. No social determinants of health present to impede follow-up. Portions of this note were created with voice recognition technology. There may be grammatical, spelling, punctuation or sound alike errors 07/06/24 22:40 Counseled pt/family regarding: lab results, diagnosis, rad results - Departure Departure Disposition: Home Clinical Impression: Hypokalemia, Tachycardia, Dehydration, Orthostatic dizziness Condition: Stable Critical Care Time: No Referrals: DOCTOR,NO FAMILY [Primary Care Provider] - Follow up/PCP as directed Additional Instructions: Discharge/Care Plan LYUDMILATEODORO DEY was seen on 07/06/24 in the Emergency Room. The patient was counseled regarding Diagnosis,Lab results, Imaging studies, need for follow up and when to return to the Emergency Room. Prescriptions given: Discharge Note I have spoken with the patient and/or caregivers. I have explained the patient's condition, diagnosis and treatment plan based on the information available to me at this time. I have answered the patient's and/or caregiver's questions and addressed any concerns. The patient and/or caregivers have as good understanding of the patient's diagnosis, condition and treatment plan as can be expected at this point. The vital signs have been stable. The patient's condition is stable and appropriate for discharge from the emergency department. The patient will pursue further outpatient evaluation with the primary care physician or other designated or consulting physician as outlined in the discharge instructions. The patient and/or caregivers are agreeable to this plan of care and follow-up instructions have been explained in detail. The patient and/or caregivers have received these instruction. The patient/and or caregivers are aware that any significant change in condition or worsening of symptoms should prompt an immediate return to this or the closest emergency department or call 911.
[2024-07-06 20:20] LABS: Appearance Clear (Clear); Bacteria None Seen /HPF (None Seen); Bilirubin Negative (Negative); Blood Negative (Negative); Epithelial Cells None Seen /HPF (None Seen); Glucose, Urine Negative (Negative); Hyaline Casts NONE SEEN /LPF (0-2); Ketones Negative (Negative); Leukocyte Esterase Negative (Negative); Nitrite Negative (Negative); Protein,Urine Dip Negative (Negative); RBC 0-2 /HPF (0-5); Specific Gravity <=1.005 (1.005-1.030); Urobilinogen 0.2 mg/dL (0.2); WBC 0-2 /HPF (0-5)
[2024-07-06 20:25] LABS: Absolute Neutrophil Ct (ANC) 2.06 x10^3/uL (1.56-6.13); BASOPHIL % 0.7 % (0.1-1.2); Basophil (Absolute #) 0.03 x10^3/uL (0.01-0.08); Eosinophil % 5.5 % (0.7-5.8); Eosinophil (Absolute #) 0.23 x10^3/uL (0.04-0.36); Hematocrit 39.5 % (34.1-44.9); Hemoglobin 12.6 g/dL (11.2-15.7); Lymphocyte (Absolute #) 1.47 x10^3/uL (1.18-3.74); Lymphocytes % 35.3 % (19.3-51.7); Mean Cell Volume 81.8 fL (79.4-94.8); Mean Corpuscular Hemoglobin 26.1 pg (25.6-32.2); Mean Corpuscular Hgb Concent. 31.9 g/dL (32.2-35.5); Mean Platelet Volume 12.5 fL (9.4-12.3); Monocyte (Absolute #) 0.37 x10^3/uL (0.24-0.86); Monocytes % 8.9 % (4.7-12.5); Neutrophil % 49.6 % (34.0-71.1); Platelet Count 157 x10^3/uL (182-369); Red Blood Count 4.83 x10^6/uL (3.93-5.22); Red Cell Distribution Width 12.8 % (11.7-14.4); White Blood Count 4.2 x10^3/uL (3.98-10.04)
[2024-07-06 20:38] LABS: ALBUMIN 4.9 g/dL (3.5-5.0); BILIRUBIN,TOTAL 0.3 mg/dL (0.2-1.3); Calcium 9.5 mg/dL (8.4-10.2); Creatinine 1 0.63 mg/dL (0.52-1.04); EST GLOMERULAR FILTRATION RATE 126.2 ML/MIN; Potassium 3.3 mmol/L (3.5-5.1); Total Protein 8.1 g/dL (6.3-8.2)
[2024-07-06 20:40] LABS: INR 1.1 (0.8-3.0); PROTIME 11.9 SECONDS (9.4-12.5); PTT 28.8 SECONDS (25.1-36.5)
[2024-07-06 21:05] VITALS: O2SAT 100
[2024-07-06] MEDS ORDERED: Klor Con ONE (21:56)
[2024-07-06] MEDS: Klor Con PO ONE (21:57)
[2024-07-06 22:11] VITALS: BP 121/88; PULSE 92; RESP 20
== END 2024-07-06 22:53 | disposition home or self-care (01) ==
LOC: ED 19:34
DX: E87.6 Hypokalemia (principal); R42 Dizziness and giddiness; Z79.899 Other long term (current) drug therapy; R00.0 Tachycardia, unspecified; E86.0 Dehydration; Z86.2 Personal history of diseases of the blood and blood-forming organs and certain disorders involving the immune mechanism
CPT/HCPCS: 36000; 36415; 80053; 81001; 82947; 84443; 84484; 85025; 85610; 85730; 93005; 93041; 94760; 96360; 99284; A9270-GY

== ENCOUNTER 2024-08-07 19:24 | Emergency (ER) | payer OTHER ==
--- NOTE | 2024-08-07 19:30 | ERPHSYRPT ---
- History of Present Illness Time Seen by Provider: 08/07/24 19:29 Source: patient, family Exam Limitations: no limitations Physician History: This is a thin 24-year-old white female patient who recently found a new primary care provider and is here in emergency department by private vehicle accompanied by family member secondary to tachycardia causing some dizziness. Patient was here on 05/06/2024 with complaint of dizziness at that time. This patient states the last 3 to 4 days her symptoms of intermittent tachycardia became more constant. She had associated left anterior chest wall pain. Patient refused to take her metoprolol because she does not like the way it feels. She is also supposed to be on gabapentin which she stopped acutely more than 24 hours ago. Patient has a emergency planner out of [facility]. Patient states she will not take any metoprolol tonight. Patient has a history gastroesophageal reflux disease, anxiety and panic disorder, chronic tachycardia, asthma, PTSD and anemia. Patient states that her outpatient physicians feel that she might have POTS disease. Patient will allow us to check a urine and blood work. She does not want an antiemetic and infusion of crystalloid fluid. The crystalloid fluid infusion seems to resolve her symptoms per her report. Timing/Duration: day(s) (3 to 4 days) Quality: aching Location: other (Anterior chest wall) Severity of Pain-Max: mild Severity of Pain-Current: mild Modifying Factors: Improves With: nothing Nitro Today/Relief: no nitro taken today Aspirin Treatment Today: no aspirin today Associated Symptoms: nausea (Mild), chest pain (Left anterior chest wall), No vomiting, No abdominal pain, No shortness of breath, No weakness Allergies/Adverse Reactions: fentanyl Adverse Reaction (Mild, Verified 08/07/24 19:34) Rapid Heart Beat Home Medications: ALPRAZolam 0.25 MG [xanAX 0.25 MG] 0.25 mg PO DAILY PRN 11/19/23 [History] Gabapentin 1 tab PO DAILY 08/07/24 [History] Ondansetron [Ondansetron Odt ] 1 tab PO Q8HPRN PRN 08/07/24 [History] Promethazine HCl 1 tab PO Q6-8HPRN PRN 08/07/24 [History] Hx Tetanus, Diphtheria Vaccination/Date Given: Yes Hx Influenza Vaccination/Date Given: No Hx Pneumococcal Vaccination/Date Given: No Travel Risk - International Travel Have you traveled outside of the country in past 3 weeks: No - Emerging Infectious Disease Are you exhibiting symptoms associated with any current EIDs: No Symptoms: Abdominal Pain, Vomitting - Review of Systems Constitutional: No Symptoms Eyes: No Symptoms Ears, Nose, & Throat: No Symptoms Respiratory: No Symptoms Cardiac: Chest Pain, Palpitations (Tachycardia) Abdominal/Gastrointestinal: Nausea, Appetite Changes Genitourinary Symptoms: No Symptoms Musculoskeletal: No Symptoms Skin: No Symptoms Neurological: Dizziness (Mild chronic intermittent) Psychological: No Symptoms Endocrine: No Symptoms Hematologic/Lymphatic: No Symptoms Immunological/Allergic: No Symptoms All Other Systems: Reviewed and Negative - Past Medical History Pertinent Past Medical History: Yes Neurological History: No Pertinent History ENT History: No Pertinent History Cardiac History: Arrhythmia Respiratory History: Asthma Endocrine Medical History: Hypoglycemia Musculoskeletal History: No Pertinent History GI Medical History: GERD, Irritable Bowel History: No Pertinent History Psycho-Social History: Anxiety, Bipolar, Panic Disorder Female Reproductive Disorders: No Pertinent History Other Medical History: anemia, tachycardia, PTSD, nutcracker syndrome - Past Surgical History Past Surgical History: No Neuro Surgical History: No Pertinent History Cardiac: No Pertinent History Respiratory: No Pertinent History Gastrointestinal: No Pertinent History Genitourinary: No Pertinent History Musculoskeletal: No Pertinent History Female Surgical History: No Pertinent History Other Surgical History: endoscopy - Female History Hx Last Menstrual Period: 07/04/24 - Social History Smoking Status: Current every day smoker Exposure to second hand smoke: Yes Drug Use: none - Social Determinants of Health Will the patient participate in the screening: Declined to provide - Nursing Vital Signs Nursing Vital Signs: Initial Vital Signs Temperature 99.1 F 08/07/24 19:28 Pulse Rate 128 H 08/07/24 19:28 Respiratory Rate 17 08/07/24 19:28 Blood Pressure 126/87 08/07/24 19:28 O2 Sat by Pulse Oximetry 100 08/07/24 19:28 Pain Scale Pain Intensity 3 - Physical Exam General Appearance: no apparent distress, alert, thin Eye Exam: PERRL/EOMI, eyes nml inspection Ears, Nose, Throat Exam: normal ENT inspection, moist mucous membranes Neck Exam: normal inspection, non-tender, supple, full range of motion Respiratory Exam: normal breath sounds, lungs clear, airway intact, No chest tenderness, No respiratory distress Cardiovascular Exam: normal peripheral pulses, tachycardia Gastrointestinal/Abdomen Exam: soft, normal bowel sounds, No tenderness Pelvic Exam: not done Rectal Exam: not done Back Exam: normal inspection, normal range of motion, No CVA tenderness, No vertebral tenderness Extremity Exam: normal inspection, normal range of motion, pelvis stable Neurologic Exam: alert, oriented x 3, cooperative, commercial decorator II-XII nml as tested, nml cerebellar function, nml station & gait, sensation nml Skin Exam: normal color, warm, dry Lymphatic Exam: No adenopathy SpO2 Interpretation: normal O2 Delivery: Room Air - Course Nursing assessment & vital signs reviewed: Yes EKG Interpreted by Me: RATE ([id number]), Sinus Tach, NORMAL AXIS, NORMAL INTERVALS, NORMAL QRS, Non-specific ST Changes, Other (No acute ischemic changes on today's twelve-lead EKG. QTc is 443) Ordered Tests: Active Orders 24 hr Category Date Time Status EKG-ER Only STAT Care 08/07/24 19:54 Active IV Insertion STAT Care 08/07/24 19:54 Active Pulse Oximetry (ED) STAT Care 08/07/24 19:54 Active CBC W DIFF Stat Lab 08/07/24 19:45 Completed CMP Stat Lab 08/07/24 19:45 Completed MAGNESIUM Stat Lab 08/07/24 19:45 Completed TROPONIN Q4H Lab 08/07/24 19:45 Completed TROPONIN Q4H Lab 08/08/24 00:00 Ordered TROPONIN Q4H Lab 08/08/24 04:00 Ordered UA W/RFX UR CULTURE Stat Lab 08/07/24 20:58 Completed Medication Summary Discontinued Medications Generic Name Dose Route Start Last Admin Trade Name Bianca PRN Reason Stop Dose Admin Sodium Chloride 1,000 mls @ 999 mls/hr 08/07/24 19:54 08/07/24 20:59 Sodium Chloride 0.9% 1000 Ml IV 08/07/24 20:54 Infused .Q1H1M STA Infusion Sodium Chloride Confirm 08/07/24 19:58 Sodium Chloride 0.9% 1000 Ml Administered 08/07/24 19:59 Dose 1,000 mls @ ud .ROUTE .STK-MED ONE Ondansetron HCl 4 mg 08/07/24 19:55 08/07/24 20:00 Ondansetron Hcl 4 Mg/2 Ml Vial IV 08/07/24 19:56 4 mg STAT ONE Administration Ondansetron HCl Confirm 08/07/24 19:57 Ondansetron Hcl 4 Mg/2 Ml Vial Administered 08/07/24 19:58 Dose 4 mg .ROUTE .STK-MED ONE Lab/Rad Data: Laboratory Result Diagrams 08/07/24 19:45 08/07/24 19:45 Laboratory Results 08/07/24 08/07/24 08/07/24 Range/Units 20:58 19:45 19:45 WBC (3.98-10.04) x10^3/uL RBC (3.93-5.22) x10^6/uL Hgb (11.2-15.7) g/dL Hct (34.1-44.9) % MCV (79.4-94.8) fL MCH (25.6-32.2) pg MCHC (32.2-35.5) g/dL RDW (11.7-14.4) % Plt Count (182-369) x10^3/uL MPV (9.4-12.3) fL Gran % (34.0-71.1) % Immature Gran % (Auto) (0.001-0.429) % Nucleat RBC Rel Count (0.00-0.2) % Eos # (Auto) (0.04-0.36) x10^3/uL Immature Gran # (Auto) (0.001-0.031) x10^3u/L Absolute Lymphs (auto) (1.18-3.74) x10^3/uL Absolute Monos (auto) (0.24-0.86) x10^3/uL Absolute Nucleated RBC (0.00-0.012) x10^3u/L Lymphocytes % (19.3-51.7) % Monocytes % (4.7-12.5) % Eosinophils % (0.7-5.8) % Basophils % (0.1-1.2) % Absolute Granulocytes (1.56-6.13) x10^3/uL Basophils # (0.01-0.08) x10^3/uL Sodium 137 (135-145) mmol/L Potassium 3.4 L (3.5-5.1) mmol/L Chloride 105 (98-107) mmol/L Carbon Dioxide 24 (22-30) mmol/L Anion Gap 12.0 (5-15) MEQ/L BUN 5 L (7-17) mg/dL Creatinine 0.63 (0.52-1.04) mg/dL Estimated GFR 126.2 ML/MIN Glucose 106 (74-106) mg/dL Calcium 9.8 (8.4-10.2) mg/dL Magnesium 2.0 (1.6-2.3) mg/dL Total Bilirubin 0.30 (0.2-1.3) mg/dL AST 29 (14-36) U/L ALT 18 (0-35) U/L Alkaline Phosphatase 78 (38-126) U/L Troponin I < 0.012 (0.000-0.033) ng/mL Serum Total Protein 7.9 (6.3-8.2) g/dL Albumin 4.7 (3.5-5.0) g/dL Urine Color Yellow (Yellow) Urine Appearance Clear (Clear) Urine pH 7.5 (4.6-8.0) Ur Specific [place] <=1.005 (1.005-1.030) Urine Protein Negative (Negative) Urine Glucose (UA) Negative (Negative) mg/dL Urine Ketones Negative (Negative) Urine Blood Negative (Negative) Urine Nitrite Negative (Negative) Urine Bilirubin Negative (Negative) Urine Urobilinogen 0.2 (0.2) mg/dL Ur Leukocyte Esterase Negative (Negative) U Hyaline Cast (Auto) NONE SEEN (0-2) /LPF Urine Microscopic RBC 0-2 (0-5) /HPF Urine Microscopic WBC 0-2 (0-5) /HPF Ur Epithelial Cells Rare (None Seen) /HPF Urine Bacteria None Seen (None Seen) /HPF Urine Culture Reflexed NO (NO) 08/07/24 Range/Units 19:45 WBC 4.9 (3.98-10.04) x10^3/uL RBC 4.78 (3.93-5.22) x10^6/uL Hgb 12.7 (11.2-15.7) g/dL Hct 39.2 (34.1-44.9) % MCV 82.0 (79.4-94.8) fL MCH 26.6 (25.6-32.2) pg MCHC 32.4 (32.2-35.5) g/dL RDW 13.0 (11.7-14.4) % Plt Count 157 L (182-369) x10^3/uL MPV 12.5 H (9.4-12.3) fL Gran % 56.1 (34.0-71.1) % Immature Gran % (Auto) 0.2 (0.001-0.429) % Nucleat RBC Rel Count 0.0 (0.00-0.2) % Eos # (Auto) 0.13 (0.04-0.36) x10^3/uL Immature Gran # (Auto) 0.01 (0.001-0.031) x10^3u/L Absolute Lymphs (auto) 1.44 (1.18-3.74) x10^3/uL Absolute Monos (auto) 0.53 (0.24-0.86) x10^3/uL Absolute Nucleated RBC 0.00 (0.00-0.012) x10^3u/L Lymphocytes % 29.3 (19.3-51.7) % Monocytes % 10.8 (4.7-12.5) % Eosinophils % 2.6 (0.7-5.8) % Basophils % 1.0 (0.1-1.2) % Absolute Granulocytes 2.75 (1.56-6.13) x10^3/uL Basophils # 0.05 (0.01-0.08) x10^3/uL Sodium (135-145) mmol/L Potassium (3.5-5.1) mmol/L Chloride (98-107) mmol/L Carbon Dioxide (22-30) mmol/L Anion Gap (5-15) MEQ/L BUN (7-17) mg/dL Creatinine (0.52-1.04) mg/dL Estimated GFR ML/MIN Glucose (74-106) mg/dL Calcium (8.4-10.2) mg/dL Magnesium (1.6-2.3) mg/dL Total Bilirubin (0.2-1.3) mg/dL AST (14-36) U/L ALT (0-35) U/L Alkaline Phosphatase (38-126) U/L Troponin I (0.000-0.033) ng/mL Serum Total Protein (6.3-8.2) g/dL Albumin (3.5-5.0) g/dL Urine Color (Yellow) Urine Appearance (Clear) Urine pH (4.6-8.0) Ur Specific [place] (1.005-1.030) Urine Protein (Negative) Urine Glucose (UA) (Negative) mg/dL Urine Ketones (Negative) Urine Blood (Negative) Urine Nitrite (Negative) Urine Bilirubin (Negative) Urine Urobilinogen (0.2) mg/dL Ur Leukocyte Esterase (Negative) U Hyaline Cast (Auto) (0-2) /LPF Urine Microscopic RBC (0-5) /HPF Urine Microscopic WBC (0-5) /HPF Ur Epithelial Cells (None Seen) /HPF Urine Bacteria (None Seen) /HPF Urine Culture Reflexed (NO) - Progress Progress: improved, re-examined Air Movement: good Progress Note: 08/07/24 20:03 My medical decision making and the assignment of moderate complexity to this patient's medical issues today is based on review of the patient's past medical history, review the patient's medication list, reviewed patient drug allergy list, history present illness and physical findings on examination. The workup in this patient includes placement of an intravenous line, infusion of cryst alloid solution, infusion of Zofran, CBC, CMP, urinalysis, magnesium level, troponin level, twelve-lead EKG. Patient is refusing metoprolol and aspirin. Differential diagnosis includes but is not limited to anxiety/panic disorder, pots disease, dehydration, urinary tract infection, electrolyte abnormalities 08/07/24 21:21 I interpreted her laboratory data results. Based on her laboratory data r esults, patient has no acute, emergent medical issue. I interpreted the patient's repeat twelve-lead EKG that was performed on 08/07/2024 at 2117. The heart rate is 77 it is normal sinus rhythm. There is normal axis deviation, QRS and intervals. There is no evidence of acute ischemia. QTc is 427 Blood Culture(s) Obtained: No Antibiotics given: No Counseled pt/family regarding: lab results, diagnosis, need for follow-up Medical Desision Making - Independent Historian Additional History obtained from: Family - Diagnostic Testing Diagnostic test were ordered, analyzed, and reviewed by me: Yes - Risk of complications Minimal Risk: Minimal risk of morbidity - Departure Departure Disposition: Home Clinical Impression: Sinus tachycardia Condition: Stable Critical Care Time: No Referrals: DOCTOR,NO FAMILY [NON-STAFF PHY W/O PRIVILEGES] - Follow up/PCP as directed Additional Instructions: Drink plenty of clear liquids. Take all your medications as prescribed. Call your primary care provider and emergency planner tomorrow, 08/08/2024, to make arrangements for follow-up appointment to be seen in the next 3 to 5 days for further evaluation and management.
[2024-08-07 19:45] VITALS: TEMP 99.1; O2SAT 100
[2024-08-07] MEDS ORDERED: Zofran 4 MG/2 ML VIAL ONE (19:57)
[2024-08-07] MEDS ORDERED: Sodium Chloride 0.9% 1000 ML 1,000 ML ONE (19:58)
[2024-08-07] MEDS: Zofran 4 MG/2 ML VIAL IV ONE (20:00)
[2024-08-07] MEDS: Sodium Chloride 0.9% 1000 ML 1,000 ML IV STA (20:00)
[2024-08-07 20:01] LABS: Absolute Neutrophil Ct (ANC) 2.75 x10^3/uL (1.56-6.13); Basophil (Absolute #) 0.05 x10^3/uL (0.01-0.08); Eosinophil % 2.6 % (0.7-5.8); Eosinophil (Absolute #) 0.13 x10^3/uL (0.04-0.36); Hematocrit 39.2 % (34.1-44.9); Hemoglobin 12.7 g/dL (11.2-15.7); IMMATURE GRAN # 0.01 x10^3u/L (0.001-0.031); IMMATURE GRAN % 0.2 % (0.001-0.429); Lymphocyte (Absolute #) 1.44 x10^3/uL (1.18-3.74); Lymphocytes % 29.3 % (19.3-51.7); Mean Corpuscular Hemoglobin 26.6 pg (25.6-32.2); Mean Corpuscular Hgb Concent. 32.4 g/dL (32.2-35.5); Mean Platelet Volume 12.5 fL (9.4-12.3); Monocyte (Absolute #) 0.53 x10^3/uL (0.24-0.86); Monocytes % 10.8 % (4.7-12.5); Neutrophil % 56.1 % (34.0-71.1); Platelet Count 157 x10^3/uL (182-369); Red Blood Count 4.78 x10^6/uL (3.93-5.22); White Blood Count 4.9 x10^3/uL (3.98-10.04)
[2024-08-07 20:20] LABS: ALBUMIN 4.7 g/dL (3.5-5.0); BILIRUBIN,TOTAL 0.3 mg/dL (0.2-1.3); Calcium 9.8 mg/dL (8.4-10.2); Creatinine 1 0.63 mg/dL (0.52-1.04); EST GLOMERULAR FILTRATION RATE 126.2 ML/MIN; Potassium 3.4 mmol/L (3.5-5.1); Total Protein 7.9 g/dL (6.3-8.2)
[2024-08-07 21:08] VITALS: BP 94/64; PULSE 85; RESP 22
[2024-08-07 21:16] LABS: Appearance Clear (Clear); Bacteria None Seen /HPF (None Seen); Bilirubin Negative (Negative); Blood Negative (Negative); Epithelial Cells Rare /HPF (None Seen); Glucose, Urine Negative (Negative); Hyaline Casts NONE SEEN /LPF (0-2); Ketones Negative (Negative); Leukocyte Esterase Negative (Negative); Nitrite Negative (Negative); Ph 7.5 (4.6-8.0); Protein,Urine Dip Negative (Negative); RBC 0-2 /HPF (0-5); Specific Gravity <=1.005 (1.005-1.030); Urobilinogen 0.2 mg/dL (0.2); WBC 0-2 /HPF (0-5)
== END 2024-08-07 21:42 | disposition home or self-care (01) ==
LOC: ED 19:24
DX: R00.0 Tachycardia, unspecified (principal); R42 Dizziness and giddiness; R07.9 Chest pain, unspecified; F17.200 Nicotine dependence, unspecified, uncomplicated; F41.9 Anxiety disorder, unspecified
CPT/HCPCS: 36415; 80053; 81001; 83735; 84484; 85025; 93005; 94760; 96374; 99284; J2405

== ENCOUNTER 2024-08-29 17:57 | Emergency (ER) | payer OTHER ==
[2024-08-29 18:55] VITALS: TEMP 97.2
[2024-08-29 19:49] LABS: BASOPHIL % 0.8 % (0.1-1.2); Basophil (Absolute #) 0.03 x10^3/uL (0.01-0.08); Eosinophil % 3.5 % (0.7-5.8); Eosinophil (Absolute #) 0.13 x10^3/uL (0.04-0.36); Hematocrit 36.1 % (34.1-44.9); Hemoglobin 11.6 g/dL (11.2-15.7); IMMATURE GRAN # 0.01 x10^3u/L (0.001-0.031); IMMATURE GRAN % 0.3 % (0.001-0.429); Lymphocyte (Absolute #) 1.16 x10^3/uL (1.18-3.74); Lymphocytes % 31.1 % (19.3-51.7); Mean Cell Volume 82.4 fL (79.4-94.8); Mean Corpuscular Hemoglobin 26.5 pg (25.6-32.2); Mean Corpuscular Hgb Concent. 32.1 g/dL (32.2-35.5); Mean Platelet Volume 12.3 fL (9.4-12.3); Neutrophil % 56.3 % (34.0-71.1); Platelet Count 144 x10^3/uL (182-369); Red Blood Count 4.38 x10^6/uL (3.93-5.22); Red Cell Distribution Width 12.8 % (11.7-14.4); White Blood Count 3.7 x10^3/uL (3.98-10.04)
--- NOTE | 2024-08-29 19:58 | ERPHSYRPT ---
- History of Present Illness Time Seen by Provider: 08/29/24 19:40 Source: patient Exam Limitations: no limitations Patient Subjective Stated Complaint: . Triage Nursing Assessment: . Physician History: 24yo f pmhx POTS presents via private vehicle for weakness x 1d. Pt reports she received 1L IV NS today as part of her standard tx for POTS, reports she went home and started feeling poorly, felt weak and very tired all day. Pt reports limited PO intake today, reports some mild nausea and epigastric discomfort, denies any known fevers at home. Pt endorses multiple sick contacts at home w/ URI sx. Pt endorses some mild chest discomfort w/ deep inspiration. Timing/Duration: today Severity: mild Associated Symptoms: weakness, No nausea, No vomiting, No abdominal pain, No shortness of breath, No cough, No chills, No fever, No syncope Allergies/Adverse Reactions: metoprolol [From Lopressor] Allergy (Verified 08/29/24 18:50) fentanyl Adverse Reaction (Mild, Verified 08/07/24 19:34) Rapid Heart Beat Home Medications: ALPRAZolam 0.25 MG [xanAX 0.25 MG] 0.25 mg PO DAILY PRN 11/19/23 [History] Gabapentin 1 tab PO DAILY 08/07/24 [History] Ondansetron [Ondansetron Odt ] 1 tab PO Q8HPRN PRN 08/07/24 [History] Promethazine HCl 1 tab PO Q6-8HPRN PRN 08/07/24 [History] Meclizine HCl 25 mg [Antivert 25 mg] 25 mg PO DAILY 08/29/24 [History] Hx Tetanus, Diphtheria Vaccination/Date Given: Yes Hx Influenza Vaccination/Date Given: No Hx Pneumococcal Vaccination/Date Given: No Immunizations Up to Date: Yes Travel Risk - International Travel Have you traveled outside of the country in past 3 weeks: No - Emerging Infectious Disease Are you exhibiting symptoms associated with any current EIDs: No Symptoms: Abdominal Pain, Vomitting - Review of Systems Constitutional: Fatigue, Weakness Respiratory: No Symptoms Cardiac: No Symptoms Abdominal/Gastrointestinal: No Symptoms Genitourinary Symptoms: No Symptoms - Past Medical History Pertinent Past Medical History: Yes Neurological History: No Pertinent History ENT History: No Pertinent History Cardiac History: Arrhythmia Respiratory History: Asthma Endocrine Medical History: Hypoglycemia Musculoskeletal History: No Pertinent History GI Medical History: GERD, Irritable Bowel History: No Pertinent History Psycho-Social History: Anxiety, Bipolar, Panic Disorder Female Reproductive Disorders: No Pertinent History Other Medical History: anemia, tachycardia, PTSD, nutcracker syndrome.PERKINS - Past Surgical History Past Surgical History: No Neuro Surgical History: No Pertinent History Cardiac: No Pertinent History Respiratory: No Pertinent History Gastrointestinal: No Pertinent History Genitourinary: No Pertinent History Musculoskeletal: No Pertinent History Female Surgical History: No Pertinent History Other Surgical History: endoscopy,TEETH EXTRACTION - Female History Hx Last Menstrual Period: DEC Hx Now: No - Social History Smoking Status: Current every day smoker Exposure to second hand smoke: Yes Drug Use: none - Social Determinants of Health Will the patient participate in the screening: Declined to provide - Nursing Vital Signs Nursing Vital Signs: Initial Vital Signs Temperature 97.2 F 08/29/24 18:55 Pulse Rate 87 08/29/24 18:55 Respiratory Rate 22 08/29/24 18:55 Blood Pressure 121/83 08/29/24 18:55 O2 Sat by Pulse Oximetry 100 08/29/24 18:55 Pain Scale Pain Intensity 4 - Physical Exam General Appearance: no apparent distress, alert Respiratory Exam: normal breath sounds, lungs clear, airway intact, No chest tenderness, No respiratory distress Cardiovascular Exam: regular rate/rhythm, normal heart sounds, normal peripheral pulses Gastrointestinal/Abdomen Exam: soft, normal bowel sounds, No tenderness, No di stention, No guarding Neurologic Exam: alert, oriented x 3, cooperative Skin Exam: normal color, warm, dry SpO2 Interpretation: normal SpO2: 100 O2 Delivery: Room Air - Course EKG Interpreted by Me: RATE (77), Sinus Rhythm, NORMAL ST-T (not suggestive of acute ischemia) Ordered Tests: Active Orders 24 hr Category Date Time Status EKG-ER Only STAT Care 08/29/24 19:18 Active CHEST 1 VIEW (PORTABLE) Stat Exams 08/29/24 19:19 Taken CBC W DIFF Stat Lab 08/29/24 19:45 Completed CMP Stat Lab 08/29/24 19:45 Completed HCG QUALITATIVE, SERUM Stat Lab 08/29/24 19:45 Completed UA W/RFX UR CULTURE Stat Lab 08/29/24 19:56 Completed Lab/Rad Data: Laboratory Result Diagrams 08/29/24 19:45 08/29/24 19:45 Laboratory Results 08/29/24 08/29/24 08/29/24 Range/Units 19:56 19:45 19:45 WBC (3.98-10.04) x10^3/uL RBC (3.93-5.22) x10^6/uL Hgb (11.2-15.7) g/dL Hct (34.1-44.9) % MCV (79.4-94.8) fL MCH (25.6-32.2) pg MCHC (32.2-35.5) g/dL RDW (11.7-14.4) % Plt Count (182-369) x10^3/uL MPV (9.4-12.3) fL Gran % (34.0-71.1) % Immature Gran % (Auto) (0.001-0.429) % Nucleat RBC Rel Count (0.00-0.2) % Eos # (Auto) (0.04-0.36) x10^3/uL Immature Gran # (Auto) (0.001-0.031) x10^3u/L Absolute Lymphs (auto) (1.18-3.74) x10^3/uL Absolute Monos (auto) (0.24-0.86) x10^3/uL Absolute Nucleated RBC (0.00-0.012) x10^3u/L Lymphocytes % (19.3-51.7) % Monocytes % (4.7-12.5) % Eosinophils % (0.7-5.8) % Basophils % (0.1-1.2) % Absolute Granulocytes (1.56-6.13) x10^3/uL Basophils # (0.01-0.08) x10^3/uL Sodium (135-145) mmol/L Potassium (3.5-5.1) mmol/L Chloride (98-107) mmol/L Carbon Dioxide (22-30) mmol/L Anion Gap (5-15) MEQ/L BUN (7-17) mg/dL Creatinine (0.52-1.04) mg/dL Estimated GFR ML/MIN Glucose (74-106) mg/dL Calcium (8.4-10.2) mg/dL Total Bilirubin (0.2-1.3) mg/dL AST (14-36) U/L ALT (0-35) U/L Alkaline Phosphatase (38-126) U/L Serum Total Protein (6.3-8.2) g/dL Albumin (3.5-5.0) g/dL Serum HCG, Qual NEGATIVE (NEGATIVE) Urine Color Yellow (Yellow) Urine Appearance Clear (Clear) Urine pH 7.0 (4.6-8.0) Ur Specific [place] 1.010 (1.005-1.030) Urine Protein Negative (Negative) Urine Glucose (UA) Negative (Negative) mg/dL Urine Ketones Negative (Negative) Urine Blood Negative (Negative) Urine Nitrite Negative (Negative) Urine Bilirubin Negative (Negative) Urine Urobilinogen 0.2 (0.2) mg/dL Ur Leukocyte Esterase Negative (Negative) U Hyaline Cast (Auto) NONE SEEN (0-2) /LPF Urine Microscopic RBC 0-2 (0-5) /HPF Urine Microscopic WBC 0-2 (0-5) /HPF Ur Epithelial Cells None Seen (None Seen) /HPF Urine Bacteria None Seen (None Seen) /HPF Urine Culture Reflexed NO (NO) Influenza Type A Ag NEGATIVE (NEGATIVE) Influenza Type B Ag NEGATIVE (NEGATIVE) RSV (PCR) NEGATIVE (NEGATIVE) SARS-CoV-2 (PCR) NEGATIVE (NEGATIVE) 08/29/24 08/29/24 Range/Units 19:45 19:45 WBC 3.7 L (3.98-10.04) x10^3/uL RBC 4.38 (3.93-5.22) x10^6/uL Hgb 11.6 (11.2-15.7) g/dL Hct 36.1 (34.1-44.9) % MCV 82.4 (79.4-94.8) fL MCH 26.5 (25.6-32.2) pg MCHC 32.1 L (32.2-35.5) g/dL RDW 12.8 (11.7-14.4) % Plt Count 144 L (182-369) x10^3/uL MPV 12.3 (9.4-12.3) fL Gran % 56.3 (34.0-71.1) % Immature Gran % (Auto) 0.3 (0.001-0.429) % Nucleat RBC Rel Count 0.0 (0.00-0.2) % Eos # (Auto) 0.13 (0.04-0.36) x10^3/uL Immature Gran # (Auto) 0.01 (0.001-0.031) x10^3u/L Absolute Lymphs (auto) 1.16 L (1.18-3.74) x10^3/uL Absolute Monos (auto) 0.30 (0.24-0.86) x10^3/uL Absolute Nucleated RBC 0.00 (0.00-0.012) x10^3u/L Lymphocytes % 31.1 (19.3-51.7) % Monocytes % 8.0 (4.7-12.5) % Eosinophils % 3.5 (0.7-5.8) % Basophils % 0.8 (0.1-1.2) % Absolute Granulocytes 2.10 (1.56-6.13) x10^3/uL Basophils # 0.03 (0.01-0.08) x10^3/uL Sodium 141 (135-145) mmol/L Potassium 3.7 (3.5-5.1) mmol/L Chloride 110 H (98-107) mmol/L Carbon Dioxide 23 (22-30) mmol/L Anion Gap 11.8 (5-15) MEQ/L BUN 4 L (7-17) mg/dL Creatinine 0.57 (0.52-1.04) mg/dL Estimated GFR 129.3 ML/MIN Glucose 89 (74-106) mg/dL Calcium 9.0 (8.4-10.2) mg/dL Total Bilirubin 0.20 (0.2-1.3) mg/dL AST 26 (14-36) U/L ALT 16 (0-35) U/L Alkaline Phosphatase 66 (38-126) U/L Serum Total Protein 6.8 (6.3-8.2) g/dL Albumin 4.2 (3.5-5.0) g/dL Serum HCG, Qual (NEGATIVE) Urine Color (Yellow) Urine Appearance (Clear) Urine pH (4.6-8.0) Ur Specific [place] (1.005-1.030) Urine Protein (Negative) Urine Glucose (UA) (Negative) mg/dL Urine Ketones (Negative) Urine Blood (Negative) Urine Nitrite (Negative) Urine Bilirubin (Negative) Urine Urobilinogen (0.2) mg/dL Ur Leukocyte Esterase (Negative) U Hyaline Cast (Auto) (0-2) /LPF Urine Microscopic RBC (0-5) /HPF Urine Microscopic WBC (0-5) /HPF Ur Epithelial Cells (None Seen) /HPF Urine Bacteria (None Seen) /HPF Urine Culture Reflexed (NO) Influenza Type A Ag (NEGATIVE) Influenza Type B Ag (NEGATIVE) RSV (PCR) (NEGATIVE) SARS-CoV-2 (PCR) (NEGATIVE) - Progress Progress: improved Progress Note: 08/29/24 21:35 pt drank 2 glasses of ice water and ate bag of chips while in ED, reports significant improvement in sx, feels much less fatigued BP has been stable in ED, not hypotensive lab evaluation showed no significant abnormalities, urine preg negative, not suggestive of UTI plan for dc home w/ close PCP follow up (Jarred) recommend drinking plenty of fluids - clear liquids and electrolyte containing fluids recommend increasing daily calories, try to eat 3 meals per day as possible to keep blood sugar up return to ED if: develop chest pain, start to have falls or episodes of passing out, become unable to tolerate oral liquids, develop fevers that do not respond to tylenol/ibuprofen Medical Desision Making - Diagnostic Testing Diagnostic test were ordered, analyzed, and reviewed by me: Yes Radiological Interpretation: Interpreted by me, Reviewed by me - Risk of complications Minimal Risk: Minimal risk of morbidity - Departure Departure Disposition: Home Clinical Impression: Weakness Condition: Stable Critical Care Time: No Referrals: QIANA HERNANDEZ MD [Primary Care Provider] - Follow up/PCP as directed Additional Instructions: plan for dc home w/ close PCP follow up (Jarred) recommend drinking plenty of fluids - clear liquids and electrolyte containing fluids recommend increasing daily calories, try to eat 3 meals per day as possible to keep blood sugar up return to ED if: develop chest pain, start to have falls or episodes of passing out, become unable to tolerate oral liquids, develop fevers that do not respond to tylenol/ibuprofen
[2024-08-29 20:02] LABS: HCG SERUM TEST NEGATIVE (NEGATIVE)
[2024-08-29 20:03] LABS: ALBUMIN 4.2 g/dL (3.5-5.0); ANION GAP 11.8 MEQ/L (5-15); BILIRUBIN,TOTAL 0.2 mg/dL (0.2-1.3); Creatinine 1 0.57 mg/dL (0.52-1.04); EST GLOMERULAR FILTRATION RATE 129.3 ML/MIN; Potassium 3.7 mmol/L (3.5-5.1); Total Protein 6.8 g/dL (6.3-8.2)
[2024-08-29 20:23] LABS: Appearance Clear (Clear); Bacteria None Seen /HPF (None Seen); Bilirubin Negative (Negative); Blood Negative (Negative); Epithelial Cells None Seen /HPF (None Seen); Glucose, Urine Negative (Negative); Hyaline Casts NONE SEEN /LPF (0-2); Ketones Negative (Negative); Leukocyte Esterase Negative (Negative); Nitrite Negative (Negative); Protein,Urine Dip Negative (Negative); RBC 0-2 /HPF (0-5); Urobilinogen 0.2 mg/dL (0.2); WBC 0-2 /HPF (0-5)
[2024-08-29 20:26] LABS: INFLUENZA A NEGATIVE (NEGATIVE); INFLUENZA B NEGATIVE (NEGATIVE); RESPIRATORY SYNCTIAL VIRUS NEGATIVE (NEGATIVE); SARS-CoV-2 Xpert Express NEGATIVE (NEGATIVE)
[2024-08-29 20:41] VITALS: O2SAT 100
[2024-08-29 21:06] VITALS: BP 105/65; PULSE 66; RESP 24
--- NOTE | 2024-08-30 08:51 | XRAY ---
Indication: Weakness. Comparison: January 10, 2024 Portable chest again demonstrates normal heart, lungs, and bony thorax.
== END 2024-08-29 21:45 | disposition home or self-care (01) ==
LOC: ED 17:57
DX: R53.1 Weakness (principal); R11.0 Nausea; R10.13 Epigastric pain; R07.1 Chest pain on breathing; Z79.899 Other long term (current) drug therapy; Z72.0 Tobacco use
CPT/HCPCS: 0241U; 36415; 71045; 80053; 81001; 84703; 85025; 93005; 99285; 99283

== ENCOUNTER 2024-09-10 15:44 | Emergency (ER) | payer OTHER ==
[2024-09-10 15:50] VITALS: TEMP 97.6
--- NOTE | 2024-09-10 16:03 | ERPHSYRPT ---
- History of Present Illness Time Seen by Provider: 09/10/24 15:52 Historian: patient Exam Limitations: no limitations Patient Subjective Stated Complaint: chest pressure constant since last night. woke up with it. Triage Nursing Assessment: Presents to ED ambulatory to bed 5. C/o chest pressure since 2200 last night. Pt reports it woke her up out of her sleep. Has felt the pressure ever since. Also reports pressure to L shoulder and palpitatio ns. Diarrhea x 1 week. Rates pressure 810. +nausea and diarrhea, denies vomiting. Recently diagnosed with PERKINS. [facility] Tool[facility] is Carly in [place]. PCP Jarred in [place]. EKG shows sinus tach. A &Ox3, answers all questions appropriately. Physician History: Pt states she has had constant chest pressure 8/10 in severity for the past 18 hours with shortness of air and nausea; also c/o LLQ abdominal pain and diarrhea without blood for the past week; denies fever, vomiting, headache. Pt states she has had near fainting spells and had a normal MRI brain at 6 months ago. Aspirin Treatment Today: 81 mg x 4, provided by ED Allergies/Adverse Reactions: metoprolol [From Lopressor] Allergy (Verified 09/10/24 15:50) fentanyl Adverse Reaction (Mild, Verified 09/10/24 15:50) Rapid Heart Beat Home Medications: ALPRAZolam 0.25 MG [xanAX 0.25 MG] 0.25 mg PO DAILY PRN 11/19/23 [History] Gabapentin 1 tab PO DAILY 08/07/24 [History] Ondansetron [Ondansetron Odt ] 1 tab PO Q8HPRN PRN 08/07/24 [History] Promethazine HCl 1 tab PO Q6-8HPRN PRN 08/07/24 [History] Meclizine HCl 25 mg [Antivert 25 mg] 25 mg PO DAILY 08/29/24 [History] Hx Tetanus, Diphtheria Vaccination/Date Given: Yes Hx Influenza Vaccination/Date Given: No Hx Pneumococcal Vaccination/Date Given: No Travel Risk - International Travel Have you traveled outside of the country in past 3 weeks: No - Emerging Infectious Disease Are you exhibiting symptoms associated with any current EIDs: No Symptoms: Abdominal Pain, Vomitting - Review of Systems Respiratory: Dyspnea Cardiac: Other (chest pressure) Abdominal/Gastrointestinal: Abdominal Pain, Nausea, Diarrhea Neurological: Other (near fainting spells) - Past Medical History Pertinent Past Medical History: Yes Neurological History: No Pertinent History ENT History: No Pertinent History Cardiac History: Arrhythmia Respiratory History: Asthma Endocrine Medical History: Hypoglycemia Musculoskeletal History: No Pertinent History GI Medical History: GERD, Irritable Bowel History: No Pertinent History Psycho-Social History: Anxiety, Bipolar, Panic Disorder Female Reproductive Disorders: No Pertinent History Other Medical History: anemia, tachycardia, PTSD, nutcracker syndrome.PERKINS - Past Surgical History Past Surgical History: No Neuro Surgical History: No Pertinent History Cardiac: No Pertinent History Respiratory: No Pertinent History Gastrointestinal: No Pertinent History Genitourinary: No Pertinent History Musculoskeletal: No Pertinent History Female Surgical History: No Pertinent History Other Surgical History: endoscopy,TEETH EXTRACTION - Female History Hx Last Menstrual Period: 08/30/2023 Hx Now: No - Social History Smoking Status: Current every day smoker Exposure to second hand smoke: Yes Drug Use: none - Social Determinants of Health Will the patient participate in the screening: Declined to provide - Nursing Vital Signs Nursing Vital Signs: Initial Vital Signs Temperature 97.6 F 09/10/24 15:45 Pulse Rate 115 H 09/10/24 15:45 Respiratory Rate 18 09/10/24 15:45 Blood Pressure 127/88 09/10/24 15:45 O2 Sat by Pulse Oximetry 99 09/10/24 15:45 Pain Scale Pain Intensity 8 - Physical Exam General Appearance: alert Eye Exam: PERRL/EOMI Ears, Nose, Throat Exam: TMs normal, pharynx normal Neck Exam: normal inspection Respiratory Exam: lungs clear Cardiovascular Exam: normal heart sounds Gastrointestinal/Abdomen Exam: No normal bowel sounds (B.S. moderately hyperactive and normotonic) Back Exam: normal inspection Extremity Exam: No pedal edema Neurologic Exam: alert, cooperative Skin Exam: No cyanosis SpO2 Interpretation: normal SpO2: 99 O2 Delivery: Room Air - Course Nursing assessment & vital signs reviewed: Yes EKG Interpreted by Me: RATE (111), Sinus Tach, NORMAL AXIS, Other (QTc = 446) - CT Exams Chest CT Interpretation: Tele-radiologist Report (Unremarkable CT study of the chest with contrast. No evidence of PE.) Abdomen/Pelvis CT Interpretation: Tele-radiologist Report (Minimal free pelvic fluid collection likely ovulatory. No other significant abnormality was depicted.) Ordered Tests: Active Orders 24 hr Category Date Time Status EKG-ER Only STAT Care 09/10/24 16:00 Active IV Insertion STAT Care 09/10/24 16:00 Active ABDOMEN AND PELVIS W/0 CONTRAS [CT] Stat Exams 09/10/24 16:00 Completed CHEST WITH CONTRAST [CT] Stat Exams 09/10/24 16:01 Completed AMYLASE Stat Lab 09/10/24 16:10 Completed CBC W DIFF Stat Lab 09/10/24 16:10 Completed CMP Stat Lab 09/10/24 16:10 Completed HCG QUALITATIVE, SERUM Stat Lab 09/10/24 16:10 Completed LIPASE Stat Lab 09/10/24 16:10 Completed MAGNESIUM Stat Lab 09/10/24 16:10 Completed TROPONIN Q4H Lab 09/10/24 16:10 Completed TROPONIN Q4H Lab 09/10/24 20:15 Ordered TROPONIN Q4H Lab 09/11/24 00:15 Ordered UA W/RFX UR CULTURE Stat Lab 09/10/24 16:16 Completed Urine Triage Profile Stat Lab 09/10/24 16:16 Completed Medication Summary Discontinued Medications Generic Name Dose Route Start Last Admin Trade Name Freq PRN Reason Stop Dose Admin Potassium Chloride 20 meq 09/10/24 17:05 09/10/24 17:11 Potassium Chloride Tab 10 Meq Tab PO 09/10/24 17:06 20 meq STAT ONE Administration Potassium Chloride Confirm 09/10/24 17:09 Potassium Chloride Tab 10 Meq Tab Administered 09/10/24 17:10 Dose 20 meq .ROUTE .STK-MED ONE Lab/Rad Data: Laboratory Result Diagrams 09/10/24 16:10 09/10/24 16:10 Laboratory Results 09/10/24 09/10/24 09/10/24 Range/Units 16:16 16:16 16:10 WBC (3.98-10.04) x10^3/uL RBC (3.93-5.22) x10^6/uL Hgb (11.2-15.7) g/dL Hct (34.1-44.9) % MCV (79.4-94.8) fL MCH (25.6-32.2) pg MCHC (32.2-35.5) g/dL RDW (11.7-14.4) % Plt Count (182-369) x10^3/uL MPV (9.4-12.3) fL Gran % (34.0-71.1) % Immature Gran % (Auto) (0.001-0.429) % Nucleat RBC Rel Count (0.00-0.2) % Eos # (Auto) (0.04-0.36) x10^3/uL Immature Gran # (Auto) (0.001-0.031) x10^3u/L Absolute Lymphs (auto) (1.18-3.74) x10^3/uL Absolute Monos (auto) (0.24-0.86) x10^3/uL Absolute Nucleated RBC (0.00-0.012) x10^3u/L Lymphocytes % (19.3-51.7) % Monocytes % (4.7-12.5) % Eosinophils % (0.7-5.8) % Basophils % (0.1-1.2) % Absolute Granulocytes (1.56-6.13) x10^3/uL Basophils # (0.01-0.08) x10^3/uL Sodium (135-145) mmol/L Potassium (3.5-5.1) mmol/L Chloride (98-107) mmol/L Carbon Dioxide (22-30) mmol/L Anion Gap (5-15) MEQ/L BUN (7-17) mg/dL Creatinine (0.52-1.04) mg/dL Estimated GFR ML/MIN Glucose (74-106) mg/dL Calcium (8.4-10.2) mg/dL Magnesium (1.6-2.3) mg/dL Total Bilirubin (0.2-1.3) mg/dL AST (14-36) U/L ALT (0-35) U/L Alkaline Phosphatase (38-126) U/L Troponin I < 0.012 (0.000-0.033) ng/mL Serum Total Protein (6.3-8.2) g/dL Albumin (3.5-5.0) g/dL Amylase (30-110) U/L Lipase (23-300) U/L Serum HCG, Qual (NEGATIVE) Urine Color Yellow (Yellow) Urine Appearance Clear (Clear) Urine pH 8.0 (4.6-8.0) Ur Specific [place] <=1.005 (1.005-1.030) Urine Protein Negative (Negative) Urine Glucose (UA) Negative (Negative) mg/dL Urine Ketones Negative (Negative) Urine Blood Negative (Negative) Urine Nitrite Negative (Negative) Urine Bilirubin Negative (Negative) Urine Urobilinogen 0.2 (0.2) mg/dL Ur Leukocyte Esterase Negative (Negative) U Hyaline Cast (Auto) NONE SEEN (0-2) /LPF Urine Microscopic RBC 0-2 (0-5) /HPF Urine Microscopic WBC 0-2 (0-5) /HPF Ur Epithelial Cells Rare (None Seen) /HPF Urine Bacteria None Seen (None Seen) /HPF Urine Culture Reflexed NO (NO) Urine Opiates Level NEGATIVE (NEGATIVE) Ur Methadone NEGATIVE (NEGATIVE) Urine Barbiturates NEGATIVE (NEGATIVE) Ur Phencyclidine (PCP) NEGATIVE (NEGATIVE) Urine Amphetamine NEGATIVE (NEGATIVE) U Benzodiazepine Level NEGATIVE (NEGATIVE) Urine Cocaine NEGATIVE (NEGATIVE) Urine Marijuana (THC) NEGATIVE (NEGATIVE) 09/10/24 09/10/24 09/10/24 Range/Units 16:10 16:10 16:10 WBC 3.8 L (3.98-10.04) x10^3/uL RBC 4.75 (3.93-5.22) x10^6/uL Hgb 12.5 (11.2-15.7) g/dL Hct 38.4 (34.1-44.9) % MCV 80.8 (79.4-94.8) fL MCH 26.3 (25.6-32.2) pg MCHC 32.6 (32.2-35.5) g/dL RDW 12.6 (11.7-14.4) % Plt Count 131 L (182-369) x10^3/uL MPV 13.0 H (9.4-12.3) fL Gran % 46.8 (34.0-71.1) % Immature Gran % (Auto) 0.0 L (0.001-0.429) % Nucleat RBC Rel Count 0.0 (0.00-0.2) % Eos # (Auto) 0.13 (0.04-0.36) x10^3/uL Immature Gran # (Auto) 0.00 L (0.001-0.031) x10^3u/L Absolute Lymphs (auto) 1.48 (1.18-3.74) x10^3/uL Absolute Monos (auto) 0.37 (0.24-0.86) x10^3/uL Absolute Nucleated RBC 0.00 (0.00-0.012) x10^3u/L Lymphocytes % 39.2 (19.3-51.7) % Monocytes % 9.8 (4.7-12.5) % Eosinophils % 3.4 (0.7-5.8) % Basophils % 0.8 (0.1-1.2) % Absolute Granulocytes 1.77 (1.56-6.13) x10^3/uL Basophils # 0.03 (0.01-0.08) x10^3/uL Sodium 139 (135-145) mmol/L Potassium 3.3 L (3.5-5.1) mmol/L Chloride 108 H (98-107) mmol/L Carbon Dioxide 24 (22-30) mmol/L Anion Gap 10.3 (5-15) MEQ/L BUN 2 L (7-17) mg/dL Creatinine 0.58 (0.52-1.04) mg/dL Estimated GFR 128.7 ML/MIN Glucose 105 (74-106) mg/dL Calcium 9.3 (8.4-10.2) mg/dL Magnesium 1.9 (1.6-2.3) mg/dL Total Bilirubin 0.40 (0.2-1.3) mg/dL AST 29 (14-36) U/L ALT 18 (0-35) U/L Alkaline Phosphatase 76 (38-126) U/L Troponin I (0.000-0.033) ng/mL Serum Total Protein 7.8 (6.3-8.2) g/dL Albumin 4.8 (3.5-5.0) g/dL Amylase 54 (30-110) U/L Lipase 93 (23-300) U/L Serum HCG, Qual NEGATIVE (NEGATIVE) Urine Color (Yellow) Urine Appearance (Clear) Urine pH (4.6-8.0) Ur Specific [place] (1.005-1.030) Urine Protein (Negative) Urine Glucose (UA) (Negative) mg/dL Urine Ketones (Negative) Urine Blood (Negative) Urine Nitrite (Negative) Urine Bilirubin (Negative) Urine Urobilinogen (0.2) mg/dL Ur Leukocyte Esterase (Negative) U Hyaline Cast (Auto) (0-2) /LPF Urine Microscopic RBC (0-5) /HPF Urine Microscopic WBC (0-5) /HPF Ur Epithelial Cells (None Seen) /HPF Urine Bacteria (None Seen) /HPF Urine Culture Reflexed (NO) Urine Opiates Level (NEGATIVE) Ur Methadone (NEGATIVE) Urine Barbiturates (NEGATIVE) Ur Phencyclidine (PCP) (NEGATIVE) Urine Amphetamine (NEGATIVE) U Benzodiazepine Level (NEGATIVE) Urine Cocaine (NEGATIVE) Urine Marijuana (THC) (NEGATIVE) - Progress Progress: improved Counseled pt/family regarding: lab results, diagnosis, need for follow-up, rad results Medical Desision Making - Diagnostic Testing Diagnostic test were ordered, analyzed, and reviewed by me: Yes Radiological Interpretation: Interpreted by me - Departure Departure Disposition: Home Clinical Impression: Chest pressure, Diarrhea, shortness of air, Abdominal pain Condition: Stable Critical Care Time: No Referrals: QIANA HERNANDEZ MD [Primary Care Provider] - Follow up/PCP as directed Instructions: Chest Pain (DC), Abdominal pain in adults - ED discharge ins tructions, Shortness of breath in adults - ED discharge instructions Additional Instructions: Follow up with private doctor tomorrow. Forms: Work/School Release Form
[2024-09-10 16:15] LABS: Absolute Neutrophil Ct (ANC) 1.77 x10^3/uL (1.56-6.13); BASOPHIL % 0.8 % (0.1-1.2); Basophil (Absolute #) 0.03 x10^3/uL (0.01-0.08); Eosinophil % 3.4 % (0.7-5.8); Eosinophil (Absolute #) 0.13 x10^3/uL (0.04-0.36); Hematocrit 38.4 % (34.1-44.9); Hemoglobin 12.5 g/dL (11.2-15.7); Lymphocyte (Absolute #) 1.48 x10^3/uL (1.18-3.74); Lymphocytes % 39.2 % (19.3-51.7); Mean Cell Volume 80.8 fL (79.4-94.8); Mean Corpuscular Hemoglobin 26.3 pg (25.6-32.2); Mean Corpuscular Hgb Concent. 32.6 g/dL (32.2-35.5); Monocyte (Absolute #) 0.37 x10^3/uL (0.24-0.86); Monocytes % 9.8 % (4.7-12.5); Neutrophil % 46.8 % (34.0-71.1); Platelet Count 131 x10^3/uL (182-369); Red Blood Count 4.75 x10^6/uL (3.93-5.22); Red Cell Distribution Width 12.6 % (11.7-14.4); White Blood Count 3.8 x10^3/uL (3.98-10.04)
[2024-09-10 16:30] LABS: HCG SERUM TEST NEGATIVE (NEGATIVE)
[2024-09-10 16:31] LABS: ALBUMIN 4.8 g/dL (3.5-5.0); ANION GAP 10.3 MEQ/L (5-15); BILIRUBIN,TOTAL 0.4 mg/dL (0.2-1.3); Calcium 9.3 mg/dL (8.4-10.2); Creatinine 1 0.58 mg/dL (0.52-1.04); EST GLOMERULAR FILTRATION RATE 128.7 ML/MIN; MAGNESIUM 1.9 mg/dL (1.6-2.3); Potassium 3.3 mmol/L (3.5-5.1); Total Protein 7.8 g/dL (6.3-8.2)
[2024-09-10 16:32] LABS: Appearance Clear (Clear); Bacteria None Seen /HPF (None Seen); Bilirubin Negative (Negative); Blood Negative (Negative); Epithelial Cells Rare /HPF (None Seen); Glucose, Urine Negative (Negative); Hyaline Casts NONE SEEN /LPF (0-2); Ketones Negative (Negative); Leukocyte Esterase Negative (Negative); Nitrite Negative (Negative); Protein,Urine Dip Negative (Negative); RBC 0-2 /HPF (0-5); Specific Gravity <=1.005 (1.005-1.030); Urobilinogen 0.2 mg/dL (0.2); WBC 0-2 /HPF (0-5)
[2024-09-10 16:47] LABS: Amphetamine,Urine NEGATIVE (NEGATIVE); Barbiturate,Urine NEGATIVE (NEGATIVE); Benzodiazepine,Urine NEGATIVE (NEGATIVE); Cocaine,Urine NEGATIVE (NEGATIVE); Methadone,Urine NEGATIVE (NEGATIVE); Opiate,Urine NEGATIVE (NEGATIVE); PCP,Urine NEGATIVE (NEGATIVE); THC,Urine NEGATIVE (NEGATIVE)
[2024-09-10] MEDS ORDERED: Klor Con ONE (17:09)
[2024-09-10] MEDS: Klor Con PO ONE (17:11)
[2024-09-10 17:41] VITALS: BP 98/67; PULSE 78; RESP 15
--- NOTE | 2024-09-10 18:01 | XRAY ---
CLINICAL HISTORY: llq abdominal pain COMPARISON: CT 11/19/2023. TECHNIQUE: Non-contrast CT of the abdomen and pelvis was performed, with the following protocol: axial images, and reconstructed coronal and sagittal images. No intravenous contrast was administered. One of the following dose reduction techniques was utilized for this exam: Automated exposure control, adjustment of the mA and/or kV according to patient size, and use of iterative reconstruction. FINDINGS: Abdomen: Liver: Normal in size, shape, and density. No focal lesions, cysts, or masses were identified. Gallbladder and Biliary System: The gallbladder is normal in size and shape. No wall thickening, pericholecystic fluid, or gallstones were identified. Pancreas: Pancreatic head, body, and tail are visualized and appear normal in size and density. No pancreatic masses or calcifications were noted. Spleen: Normal in size, shape, and density. No splenic lesions or masses were identified. Kidneys and Adrenal Glands: Both kidneys are normal in size, shape, and position. Cortical thickness is within normal limits. No renal calculi or hydronephrosis. Adrenal glands are unremarkable. Appendix: The appendix is normal in size without gian appendiceal fat stranding and without an appendicolith. No evidence of appendiceal abscess or perforation. Pelvis: Urinary Bladder: Normal in contour and wall thickness. No intraluminal lesions. Uterus: Normal in size and contour. No masses or abnormal thickening. Ovaries: Not well visualized but no gross abnormalities noted. Vagina: Normal in contour and wall thickness. Cervix: No evidence of mass or abnormal thickening. Peritoneal and Retroperitoneal Structures: Minimal free pelvic fluid collection noted. No free fluid or abnormal fluid collections were identified within the abdomen or pelvis. No lymphadenopathy was noted. Bowel: The visualized bowel loops are normal in caliber and appearance. No evidence of bowel obstruction or wall thickening. Bones and Soft Tissues: Pelvic bones and soft tissues are unremarkable. No fractures or abnormal masses were identified. IMPRESSION: 1. Minimal free pelvic fluid collection likely ovulatory. 2. No other significant abnormality was depicted. Electronically Signed by: Gely Perdomo MD. (09/10/2024 17:56:04 EST)
--- NOTE | 2024-09-10 18:05 | XRAY ---
CLINICAL HISTORY: dyspnea/chest pressure COMPARISON: None. TECHNIQUE: Contiguous 3.[address] images of the chest were acquired with the administration of intravenous contrast. Coronal and sagittal reconstructions were obtained with PE sequences. One of the following dose reduction techniques was utilized for this exam: Automated exposure control, adjustment of the mA and/or kV according to patient size, and use of iterative reconstruction. DLP: 190.37mGy*cm, CTDI: 36.33mGy. FINDINGS: Lungs: Lungs are clear with no evidence of consolidation, collapse, or focal lesions. No ground-glass opacities or interstitial changes. No pleural effusion or pleural thickening. Mediastinum: No mediastinal mass or abnormal lymphadenopathy. Normal appearance of the thymus. Hilar Structures: Normal size and configuration, no enlargement. Heart and Great Vessels: Normal heart size and configuration. No pericardial effusion. Normal caliber and course of the thoracic aorta and other great vessels. No significant atherosclerosis or aneurysm. Normal enhancement of the great vessels post-contrast. Pulmonary Arteries: No evidence of pulmonary embolism. Normal size and course of the pulmonary arteries. Esophagus: Normal course and caliber. No masses or dilatation. Bones: No fractures or lytic/sclerotic lesions. Normal bone density and alignment. No evidence of rib fractures. Chest Wall: No masses or soft tissue abnormalities. Upper Abdomen: Visualized portions of the liver, spleen, pancreas, adrenal glands, and kidneys are normal. No abnormalities were noted in the visualized upper abdominal organs. Thyroid: Normal size and morphology. No nodules or masses. IMPRESSION: 1. Unremarkable CT study of the chest with contrast. 2. No evidence of pulmonary embolism. Electronically Signed by: Gely Perdomo MD. (09/10/2024 18:01:38 EST)
[2024-09-10 18:13] VITALS: O2SAT 99
[2024-09-10] MEDS ORDERED: BABY ASPIRIN 81 MG CHEW ONE (18:19)
[2024-09-10] MEDS: BABY ASPIRIN 81 MG CHEW PO ONE (18:21)
== END 2024-09-10 18:25 | disposition home or self-care (01) ==
LOC: ED 15:44
DX: R07.9 Chest pain, unspecified (principal); R19.7 Diarrhea, unspecified; R06.02 Shortness of breath; R10.9 Unspecified abdominal pain; Z79.899 Other long term (current) drug therapy; Z72.0 Tobacco use
CPT/HCPCS: 36415; 71260; 74176; 80053; 80307; 81001; 82150; 83690; 83735; 84484; 84703; 85025; 93005; 99284; 99285; A9270-GY

== ENCOUNTER 2024-10-03 19:05 | Emergency (ER) | payer OTHER ==
[2024-10-03 19:31] VITALS: TEMP 98.3
--- NOTE | 2024-10-03 20:43 | ERPHSYRPT ---
- History of Present Illness Time Seen by Provider: 10/03/24 20:40 Source: patient Exam Limitations: no limitations Patient Subjective Stated Complaint: "I started having pain in my stomach earlier today but then it went away but now is back and worse. I've also had diarrhea". Triage Nursing Assessment: Pt presents to ER with complaints of LUQ sharp stabbing constant pain, rates pain 8/10 scale. Pt states has had 4 episodes of diarrhea today. Denies nausea/vomiting. Pt is guarding abdomen. Pt is alert and oriented x 3. Skin is pink, warm, and dry. Respirations are easy. Abdomen is tender upon exam. Hyperactive bowel sounds present. Physician History: 24-year-old female presents to emergency department for evaluation of left upper quadrant and mid abdomen pain that started today. Pain is associated with diarrhea. Patient reports 4 episodes of diarrhea today. Pain described as a sharp stabbing sensation rated 8 out of 10. No trauma no fever. No associated chest pain or shortness of breath. Symptoms are mild to moderate in intensity. No specific worsening or improving factors. Patient voices no other complaints or concerns at this time. Portions of this note were created with voice recognition technology. There may be grammatical, spelling, punctuation or sound alike errors Timing/Duration: today Severity: moderate Modifying Factors: Improves With: nothing Associated Symptoms: denies symptoms Allergies/Adverse Reactions: metoprolol [From Lopressor] Allergy (Verified 10/03/24 19:31) fentanyl Adverse Reaction (Mild, Verified 10/03/24 19:31) Rapid Heart Beat Home Medications: ALPRAZolam 0.25 MG [xanAX 0.25 MG] 0.25 mg PO DAILY PRN PRN 10/03/24 [History] Gabapentin [Neurontin ] 300 mg PO DAILY 10/03/24 [History] Hx Tetanus, Diphtheria Vaccination/Date Given: Yes Hx Influenza Vaccination/Date Given: No Hx Pneumococcal Vaccination/Date Given: No Immunizations Up to Date: No Travel Risk - International Travel Have you traveled outside of the country in past 3 weeks: No - Emerging Infectious Disease Are you exhibiting symptoms associated with any current EIDs: Yes Symptoms: Abdominal Pain, Diarrhea - Review of Systems Constitutional: No Symptoms, No Fever, No Chills Eyes: No Symptoms Ears, Nose, & Throat: No Symptoms Respiratory: No Symptoms, No Cough, No Dyspnea Cardiac: No Symptoms, No Chest Pain, No Edema, No Syncope Abdominal/Gastrointestinal: No Symptoms, No Abdominal Pain, No Nausea, No Vomiting, No Diarrhea Genitourinary Symptoms: No Symptoms, No Dysuria Musculoskeletal: No Symptoms, No Back Pain, No Neck Pain Skin: No Symptoms, No Rash Neurological: No Symptoms, No Dizziness, No Focal Weakness, No Sensory Changes Psychological: No Symptoms Endocrine: No Symptoms Hematologic/Lymphatic: No Symptoms Immunological/Allergic: No Symptoms All Other Systems: Reviewed and Negative - Past Medical History Pertinent Past Medical History: Yes Neurological History: No Pertinent History ENT History: No Pertinent History Cardiac History: Arrhythmia Respiratory History: Asthma Endocrine Medical History: Hypoglycemia Musculoskeletal History: No Pertinent History GI Medical History: GERD, Irritable Bowel History: No Pertinent History Psycho-Social History: Anxiety, Bipolar, Panic Disorder Female Reproductive Disorders: No Pertinent History Other Medical History: anemia, tachycardia, PTSD, nutcracker syndrome.PERKINS - Past Surgical History Past Surgical History: Yes Neuro Surgical History: No Pertinent History Cardiac: No Pertinent History Respiratory: No Pertinent History Gastrointestinal: No Pertinent History Genitourinary: No Pertinent History Musculoskeletal: No Pertinent History Female Surgical History: No Pertinent History Other Surgical History: endoscopy,TEETH EXTRACTION - Female History Hx Last Menstrual Period: 10/02/24 Hx Now: No - Social History Smoking Status: Current every day smoker How long have you smoked: 15 years Exposure to second hand smoke: No Drug Use: none - Social Determinants of Health Will the patient participate in the screening: Yes Do you worry about a steady place to live?: No Do you have any problems with any of the following?: No known problems In the past 12 months,have you had to go without utilities?: No Transportation Issues: No Has anyone in your support network made you feel unsafe?: No Have you or anyone in your house had to go without enough: No - Nursing Vital Signs Nursing Vital Signs: Initial Vital Signs Temperature 98.3 F 10/03/24 19:24 Pulse Rate 117 H 10/03/24 19:24 Respiratory Rate 16 10/03/24 19:24 Blood Pressure 116/78 10/03/24 19:24 O2 Sat by Pulse Oximetry 100 10/03/24 19:24 Pain Scale Pain Intensity 6 - Physical Exam General Appearance: no apparent distress, alert Eye Exam: PERRL/EOMI, eyes nml inspection Ears, Nose, Throat Exam: normal ENT inspection, moist mucous membranes Neck Exam: normal inspection, full range of motion Respiratory Exam: normal breath sounds, lungs clear, No respiratory distress Cardiovascular Exam: regular rate/rhythm, normal heart sounds, normal peripheral pulses Gastrointestinal/Abdomen Exam: soft, normal bowel sounds, other (Tenderness to palpation left flank.), No tenderness, No mass Back Exam: normal inspection, normal range of motion, No CVA tenderness, No vertebral tenderness Extremity Exam: normal inspection, normal range of motion, pelvis stable Neurologic Exam: alert, oriented x 3, cooperative, normal mood/affect, sensation nml, No motor deficits Skin Exam: normal color, warm, dry, No rash Lymphatic Exam: No adenopathy SpO2 Interpretation: normal SpO2: 100 O2 Delivery: Room Air - Course Nursing assessment & vital signs reviewed: Yes Ordered Tests: Active Orders 24 hr Category Date Time Status IV Insertion STAT Care 10/03/24 20:26 Active ABDOMEN AND PELVIS W/0 CONTRAS [CT] Stat Exams 10/03/24 20:26 Taken CBC W DIFF Stat Lab 10/03/24 20:45 Completed CMP Stat Lab 10/03/24 20:45 Completed HCG QUALITATIVE, URINE Stat Lab 10/03/24 21:06 Completed LIPASE Stat Lab 10/03/24 20:45 Completed POCT GLUCOSE Stat Lab 10/03/24 21:26 Completed TROPONIN Q4H Lab 10/03/24 20:45 Completed TROPONIN Q4H Lab 10/04/24 00:30 Ordered TROPONIN Q4H Lab 10/04/24 04:30 Ordered UA W/RFX UR CULTURE Stat Lab 10/03/24 20:29 Completed Medication Summary Generic Name Dose Route Start Last Admin Trade Name Freq PRN Reason Stop Dose Admin Sodium Chloride 1,000 mls @ 100 mls/hr 10/03/24 20:30 10/03/24 20:52 Sodium Chloride 0.9% 1000 Ml IV 11/02/24 20:29 100 mls/hr .Q10H REJI Administration Discontinued Medications Generic Name Dose Route Start Last Admin Trade Name Freq PRN Reason Stop Dose Admin Ketorolac Tromethamine 30 mg 10/03/24 20:26 10/03/24 20:53 Ketorolac Tromethamine 30 Mg/Ml Inj IV 10/03/24 20:27 30 mg STAT ONE Administration Ketorolac Tromethamine Confirm 10/03/24 20:50 Ketorolac Tromethamine 30 Mg/Ml Inj Administered 10/03/24 20:51 Dose 30 mg .ROUTE .[facility] Lab/Rad Data: Laboratory Result Diagrams 10/03/24 20:45 10/03/24 20:45 Laboratory Results 10/03/24 10/03/24 10/03/24 Range/Units 21:26 21:06 20:45 WBC (3.98-10.04) x10^3/uL RBC (3.93-5.22) x10^6/uL Hgb (11.2-15.7) g/dL Hct (34.1-44.9) % MCV (79.4-94.8) fL MCH (25.6-32.2) pg MCHC (32.2-35.5) g/dL RDW (11.7-14.4) % Plt Count (182-369) x10^3/uL MPV (9.4-12.3) fL Gran % (34.0-71.1) % Immature Gran % (Auto) (0.001-0.429) % Nucleat RBC Rel Count (0.00-0.2) % Eos # (Auto) (0.04-0.36) x10^3/uL Immature Gran # (Auto) (0.001-0.031) x10^3u/L Absolute Lymphs (auto) (1.18-3.74) x10^3/uL Absolute Monos (auto) (0.24-0.86) x10^3/uL Absolute Nucleated RBC (0.00-0.012) x10^3u/L Lymphocytes % (19.3-51.7) % Monocytes % (4.7-12.5) % Eosinophils % (0.7-5.8) % Basophils % (0.1-1.2) % Absolute Granulocytes (1.56-6.13) x10^3/uL Basophils # (0.01-0.08) x10^3/uL Sodium (135-145) mmol/L Potassium (3.5-5.1) mmol/L Chloride (98-107) mmol/L Carbon Dioxide (22-30) mmol/L Anion Gap (5-15) MEQ/L BUN (7-17) mg/dL Creatinine (0.52-1.04) mg/dL Estimated GFR ML/MIN Glucose (74-106) mg/dL POC Glucometer 96 (74 to 106) mg/dL Calcium (8.4-10.2) mg/dL Total Bilirubin (0.2-1.3) mg/dL AST (14-36) U/L ALT (0-35) U/L Alkaline Phosphatase (38-126) U/L Troponin I < 0.012 (0.000-0.033) ng/mL Serum Total Protein (6.3-8.2) g/dL Albumin (3.5-5.0) g/dL Lipase (23-300) U/L Urine Color (Yellow) Urine Appearance (Clear) Urine pH (4.6-8.0) Ur Specific [place] (1.005-1.030) Urine Protein (Negative) Urine Glucose (UA) (Negative) mg/dL Urine Ketones (Negative) Urine Blood (Negative) Urine Nitrite (Negative) Urine Bilirubin (Negative) Urine Urobilinogen (0.2) mg/dL Ur Leukocyte Esterase (Negative) U Hyaline Cast (Auto) (0-2) /LPF Urine Microscopic RBC (0-5) /HPF Urine Microscopic WBC (0-5) /HPF Ur Epithelial Cells (None Seen) /HPF Urine Bacteria (None Seen) /HPF Urine Culture Reflexed (NO) Urine HCG, Qual NEGATIVE (NEGATIVE) 10/03/24 10/03/24 10/03/24 Range/Units 20:45 20:45 20:29 WBC 3.6 L (3.98-10.04) x10^3/uL RBC 4.63 (3.93-5.22) x10^6/uL Hgb 12.0 (11.2-15.7) g/dL Hct 37.6 (34.1-44.9) % MCV 81.2 (79.4-94.8) fL MCH 25.9 (25.6-32.2) pg MCHC 31.9 L (32.2-35.5) g/dL RDW 12.8 (11.7-14.4) % Plt Count 134 L (182-369) x10^3/uL MPV 13.1 H (9.4-12.3) fL Gran % 55.3 (34.0-71.1) % Immature Gran % (Auto) 0.0 L (0.001-0.429) % Nucleat RBC Rel Count 0.0 (0.00-0.2) % Eos # (Auto) 0.15 (0.04-0.36) x10^3/uL Immature Gran # (Auto) 0.00 L (0.001-0.031) x10^3u/L Absolute Lymphs (auto) 1.06 L (1.18-3.74) x10^3/uL Absolute Monos (auto) 0.36 (0.24-0.86) x10^3/uL Absolute Nucleated RBC 0.00 (0.00-0.012) x10^3u/L Lymphocytes % 29.4 (19.3-51.7) % Monocytes % 10.0 (4.7-12.5) % Eosinophils % 4.2 (0.7-5.8) % Basophils % 1.1 (0.1-1.2) % Absolute Granulocytes 2.00 (1.56-6.13) x10^3/uL Basophils # 0.04 (0.01-0.08) x10^3/uL Sodium 141 (135-145) mmol/L Potassium 3.7 (3.5-5.1) mmol/L Chloride 106 (98-107) mmol/L Carbon Dioxide 25 (22-30) mmol/L Anion Gap 12.9 (5-15) MEQ/L BUN 4 L (7-17) mg/dL Creatinine 0.66 (0.52-1.04) mg/dL Estimated GFR 124.8 ML/MIN Glucose 88 (74-106) mg/dL POC Glucometer (74 to 106) mg/dL Calcium 9.4 (8.4-10.2) mg/dL Total Bilirubin 0.40 (0.2-1.3) mg/dL AST 28 (14-36) U/L ALT 19 (0-35) U/L Alkaline Phosphatase 76 (38-126) U/L Troponin I (0.000-0.033) ng/mL Serum Total Protein 7.4 (6.3-8.2) g/dL Albumin 4.8 (3.5-5.0) g/dL Lipase 117 (23-300) U/L Urine Color Yellow (Yellow) Urine Appearance Clear (Clear) Urine pH 7.0 (4.6-8.0) Ur Specific [place] <=1.005 (1.005-1.030) Urine Protein Negative (Negative) Urine Glucose (UA) Negative (Negative) mg/dL Urine Ketones Negative (Negative) Urine Blood Negative (Negative) Urine Nitrite Negative (Negative) Urine Bilirubin Negative (Negative) Urine Urobilinogen 0.2 (0.2) mg/dL Ur Leukocyte Esterase Negative (Negative) U Hyaline Cast (Auto) NONE SEEN (0-2) /LPF Urine Microscopic RBC 0-2 (0-5) /HPF Urine Microscopic WBC 0-2 (0-5) /HPF Ur Epithelial Cells None Seen (None Seen) /HPF Urine Bacteria None Seen (None Seen) /HPF Urine Culture Reflexed NO (NO) Urine HCG, Qual (NEGATIVE) - Progress Progress: improved Progress Note: 24-year-old female presents to emergency department for evaluation of abdominal pain. Laboratory workup essentially nonremarkable. UA negative for UTI. CT abdomen pelvis essentially unchanged from previous. No acute pathology observed. Patient resting comfortably. No active pain. Vital stable. No indication for further workup at this time. Will discharge home. Patient agrees to follow-up with her primary care doctor within 48 hours for reevaluation. Portions of this note were created with voice recognition technology. There may be grammatical, spelling, punctuation or sound alike errors Complexity of problem addressed is moderate acute complicated. No critical care time. Complex of data reviewed and analyzed is moderate. Test ordered test reviewed results analyzed and correlated clinically with history and physical exam. Risk of complication and or risk of morbidity/mortality of patient management is low. Vital stable. Time spent to discharge patient is approximately 15 minutes. Plan of care established for shared decision making. No social determinants of health present to impede follow-up. Portions of this note were created with voice recognition technology. There may be grammatical, spelling, punctuation or sound alike errors 10/03/24 22:23 Counseled pt/family regarding: lab results, diagnosis, need for follow-up, rad results - Departure Departure Disposition: Home Clinical Impression: Abdominal pain Condition: Stable Critical Care Time: No Referrals: QIANA HERNANDEZ MD [Primary Care Provider] - Follow up/PCP as directed Additional Instructions: Discharge/Care Plan TEODORO COREAS was seen on 10/03/24 in the Emergency Room. The patient was counseled regarding Diagnosis,Lab results, Imaging studies, need for follow up and when to return to the Emergency Room. Prescriptions given: Discharge Note I have spoken with the patient and/or caregivers. I have explained the patient's condition, diagnosis and treatment plan based on the information available to me at this time. I have answered the patient's and/or caregiver's questions and addressed any concerns. The patient and/or caregivers have as good understanding of the patient's diagnosis, condition and treatment plan as can be expected at this point. The vital signs have been stable. The patient's condition is stable and appropriate for discharge from the emergency department. The patient will pursue further outpatient evaluation with the primary care physician or other designated or consulting physician as outlined in the discharge instructions. The patient and/or caregivers are agreeable to this plan of care and follow-up instructions have been explained in detail. The patient and/or caregivers have received these instruction. The patient/and or caregivers are aware that any significant change in condition or worsening of symptoms should prompt an immediate return to this or the closest emergency department or call 911.
[2024-10-03] MEDS ORDERED: TORAdol 30 mg Injection ONE (20:50)
[2024-10-03] MEDS ORDERED: Sodium Chloride 0.9% 1000 ML 1,000 ML ONE (20:50)
[2024-10-03] MEDS: Sodium Chloride 0.9% 1000 ML 1,000 ML IV SCH (20:52)
[2024-10-03] MEDS: TORAdol 30 mg Injection IV ONE (20:53)
[2024-10-03 20:59] LABS: BASOPHIL % 1.1 % (0.1-1.2); Basophil (Absolute #) 0.04 x10^3/uL (0.01-0.08); Eosinophil % 4.2 % (0.7-5.8); Eosinophil (Absolute #) 0.15 x10^3/uL (0.04-0.36); Hematocrit 37.6 % (34.1-44.9); Lymphocyte (Absolute #) 1.06 x10^3/uL (1.18-3.74); Lymphocytes % 29.4 % (19.3-51.7); Mean Cell Volume 81.2 fL (79.4-94.8); Mean Corpuscular Hemoglobin 25.9 pg (25.6-32.2); Mean Corpuscular Hgb Concent. 31.9 g/dL (32.2-35.5); Mean Platelet Volume 13.1 fL (9.4-12.3); Monocyte (Absolute #) 0.36 x10^3/uL (0.24-0.86); Neutrophil % 55.3 % (34.0-71.1); Platelet Count 134 x10^3/uL (182-369); Red Blood Count 4.63 x10^6/uL (3.93-5.22); Red Cell Distribution Width 12.8 % (11.7-14.4); White Blood Count 3.6 x10^3/uL (3.98-10.04)
[2024-10-03 21:12] LABS: HCG URINE TEST NEGATIVE (NEGATIVE)
[2024-10-03 21:14] LABS: Appearance Clear (Clear); Bacteria None Seen /HPF (None Seen); Bilirubin Negative (Negative); Blood Negative (Negative); Epithelial Cells None Seen /HPF (None Seen); Glucose, Urine Negative (Negative); Hyaline Casts NONE SEEN /LPF (0-2); Ketones Negative (Negative); Leukocyte Esterase Negative (Negative); Nitrite Negative (Negative); Protein,Urine Dip Negative (Negative); RBC 0-2 /HPF (0-5); Specific Gravity <=1.005 (1.005-1.030); Urobilinogen 0.2 mg/dL (0.2); WBC 0-2 /HPF (0-5)
[2024-10-03 21:18] LABS: ALBUMIN 4.8 g/dL (3.5-5.0); ANION GAP 12.9 MEQ/L (5-15); BILIRUBIN,TOTAL 0.4 mg/dL (0.2-1.3); Calcium 9.4 mg/dL (8.4-10.2); Creatinine 1 0.66 mg/dL (0.52-1.04); EST GLOMERULAR FILTRATION RATE 124.8 ML/MIN; Potassium 3.7 mmol/L (3.5-5.1); Total Protein 7.4 g/dL (6.3-8.2)
[2024-10-03 22:24] VITALS: O2SAT 100
[2024-10-03 22:30] VITALS: BP 99/65; PULSE 80; RESP 20
--- NOTE | 2024-10-04 08:46 | XRAY ---
Indication: Abdomen pain. Diarrhea. Multiple contiguous axial images obtained through the abdomen and pelvis without contrast. Comparison: September 10, 2024. Lung bases remain clear. Heart not enlarged. Noncontrasted stomach and bowel loops appear nonobstructed. Appendix not seen. Stable 2.5 cm right ovary cyst. Gallbladder again contracted without radiopaque gallstones. No free fluid/air. Remaining liver, gallbladder, pancreas, spleen, adrenal glands, kidneys, ureters, bladder, uterus, and aorta are unremarkable for noncontrast exam. Osseous structures intact. Impression: Stable right renal cyst better evaluated with sonogram if clinically warranted. No new/acute findings on this noncontrast exam.
== END 2024-10-03 22:30 | disposition home or self-care (01) ==
LOC: ED 19:05
DX: R10.12 Left upper quadrant pain (principal); N83.201 Unspecified ovarian cyst, right side; R19.7 Diarrhea, unspecified; Z79.899 Other long term (current) drug therapy; Z72.0 Tobacco use
CPT/HCPCS: 36415; 74176; 80053; 81001; 81025; 82947; 83690; 84484; 85025; 96360; 96361; 96374; 99284; J1885

== ENCOUNTER 2024-10-23 20:45 | Emergency (ER) | payer OTHER ==
[2024-10-23 21:02] VITALS: TEMP 98.6
--- NOTE | 2024-10-23 21:19 | ERPHSYRPT ---
- History of Present Illness Source: patient Patient Subjective Stated Complaint: Pt. states, "I have pots and my heart rate got up to 150 at home. I'm dizzy and nauseaus. I have been vomiting but that has been going on for awhile and I'm suppose to be getting a port. I'm fighting with insurance to get into the [facility]." Triage Nursing Assessment: Pt amb. to room without diff., A&Ox4, Skin P/W/D, Resp. even unlabored, no edema, able to move all 4 ext. Timing/Duration: today Severity: mild Hx Tetanus, Diphtheria Vaccination/Date Given: No Hx Influenza Vaccination/Date Given: No Hx Pneumococcal Vaccination/Date Given: No Immunizations Up to Date: No - History of Present Illness Time Seen by Provider: 10/23/24 21:00 Allergies/Adverse Reactions: metoprolol [From Lopressor] Allergy (Verified 10/23/24 20:52) fentanyl Adverse Reaction (Mild, Verified 10/23/24 20:52) Rapid Heart Beat Home Medications: ALPRAZolam 0.25 MG [xanAX 0.25 MG] 0.25 mg PO DAILY PRN PRN 10/03/24 [History] Travel Risk - International Travel Have you traveled outside of the country in past 3 weeks: No - Emerging Infectious Disease Are you exhibiting symptoms associated with any current EIDs: No Symptoms: Abdominal Pain, Diarrhea - Review of Systems Constitutional: No Symptoms Eyes: No Symptoms Ears, Nose, & Throat: No Symptoms Respiratory: No Symptoms (tachycardia) - Past Medical History Pertinent Past Medical History: Yes Neurological History: No Pertinent History ENT History: No Pertinent History Cardiac History: Arrhythmia Respiratory History: Asthma Endocrine Medical History: Hypoglycemia Musculoskeletal History: No Pertinent History GI Medical History: GERD, Irritable Bowel History: No Pertinent History Psycho-Social History: Anxiety, Bipolar, Panic Disorder Female Reproductive Disorders: No Pertinent History Other Medical History: anemia, tachycardia, PTSD, nutcracker syndrome.PERKINS - Past Surgical History Past Surgical History: Yes Neuro Surgical History: No Pertinent History Cardiac: No Pertinent History Respiratory: No Pertinent History Gastrointestinal: No Pertinent History Genitourinary: No Pertinent History Musculoskeletal: No Pertinent History Female Surgical History: No Pertinent History Other Surgical History: endoscopy,TEETH EXTRACTION - Female History Hx Last Menstrual Period: 09/30/2023 Hx Now: No - Social History Smoking Status: Current every day smoker How long have you smoked: 15 years Exposure to second hand smoke: No Drug Use: none - Social Determinants of Health Will the patient participate in the screening: Declined to provide - Physical Exam General Appearance: no apparent distress Eye Exam: PERRL/EOMI Ears, Nose, Throat Exam: normal ENT inspection Respiratory Exam: normal breath sounds Cardiovascular Exam: tachycardia Gastrointestinal/Abdomen Exam: soft, normal bowel sounds SpO2: 100 - Nursing Vital Signs Nursing Vital Signs: Initial Vital Signs Pulse Rate 108 H 10/23/24 20:53 Respiratory Rate 23 10/23/24 20:53 Blood Pressure 135/90 10/23/24 20:53 O2 Sat by Pulse Oximetry 100 10/23/24 20:53 Pain Scale Pain Intensity 0 Ordered Tests: Active Orders 24 hr Category Date Time Status CMP Stat Lab 10/23/24 21:10 Completed MAGNESIUM Stat Lab 10/23/24 21:10 Completed Medication Summary Generic Name Dose Route Start Last Admin Trade Name Freq PRN Reason Stop Dose Admin Sodium Chloride 1,000 mls @ 500 mls/hr 10/23/24 23:45 10/24/24 01:51 Sodium Chloride 0.9% 1000 Ml IV 11/22/24 23:44 Infused .Q2H REJI Infusion Discontinued Medications Generic Name Dose Route Start Last Admin Trade Name Freq PRN Reason Stop Dose Admin Sodium Chloride 1,000 mls @ 999 mls/hr 10/23/24 21:16 10/24/24 00:34 Sodium Chloride 0.9% 1000 Ml IV 10/23/24 22:16 Infused .Q1H1M STA Infusion Sodium Chloride Confirm 10/23/24 21:22 Sodium Chloride 0.9% 1000 Ml Administered 10/23/24 21:23 Dose 1,000 mls @ ud .ROUTE .[facility] ONE Lab/Rad Data: Laboratory Result Diagrams 10/23/24 21:10 Laboratory Results 10/23/24 Range/Units 21:10 Sodium 141 (135-145) mmol/L Potassium 3.1 L (3.5-5.1) mmol/L Chloride 106 (98-107) mmol/L Carbon Dioxide 20 L (22-30) mmol/L Anion Gap 18.0 H (5-15) MEQ/L BUN 5 L (7-17) mg/dL Creatinine 0.57 (0.52-1.04) mg/dL Estimated GFR 129.3 ML/MIN Glucose 105 (74-106) mg/dL Calcium 9.5 (8.4-10.2) mg/dL Magnesium 2.0 (1.6-2.3) mg/dL Total Bilirubin 0.50 (0.2-1.3) mg/dL AST 28 (14-36) U/L ALT 18 (0-35) U/L Alkaline Phosphatase 82 (38-126) U/L Serum Total Protein 8.1 (6.3-8.2) g/dL Albumin 5.1 H (3.5-5.0) g/dL - Progress Progress Note: Acute abdominal pain patient was seen evaluated for her PERKINS, she states in the past she has been given fluids with some relief. CMP normal saline and Zofran will be ordered to treat her symptomatically she will then be discharge care of this patient will be transferred to Dr. Wells 10/23/24 21:25 (MIRIAM HAWKINS) The patient got 2 L of fluids slowly and her pressure came up nicely. She was ready for discharge. 10/24/24 01:52 (SARBJIT WELLS) - Departure Critical Care Time: No - Departure Clinical Impression: Orthostatic dizziness Condition: Stable Referrals: QIANA HERNANDEZ MD [Primary Care Provider] - Follow up/PCP as directed
[2024-10-23] MEDS ORDERED: Sodium Chloride 0.9% 1000 ML 1,000 ML ONE ×2 (21:22→23:35)
[2024-10-23] MEDS: Sodium Chloride 0.9% 1000 ML 1,000 ML IV STA (21:23)
[2024-10-23 21:31] LABS: ALBUMIN 5.1 g/dL (3.5-5.0); BILIRUBIN,TOTAL 0.5 mg/dL (0.2-1.3); Calcium 9.5 mg/dL (8.4-10.2); Creatinine 1 0.57 mg/dL (0.52-1.04); EST GLOMERULAR FILTRATION RATE 129.3 ML/MIN; Potassium 3.1 mmol/L (3.5-5.1); Total Protein 8.1 g/dL (6.3-8.2)
[2024-10-23] MEDS: Sodium Chloride 0.9% 1000 ML 1,000 ML IV SCH (23:36)
[2024-10-24 00:11] VITALS: O2SAT 98
[2024-10-24 02:07] VITALS: BP 111/73; PULSE 84; RESP 24
== END 2024-10-24 02:07 | disposition home or self-care (01) ==
LOC: ED 20:45
DX: I95.1 Orthostatic hypotension (principal); R42 Dizziness and giddiness; G90.A Postural orthostatic tachycardia syndrome [POTS]; Z79.899 Other long term (current) drug therapy; Z72.0 Tobacco use
CPT/HCPCS: 36415; 80053; 83735; 96360; 96361; 96374; 99283; 99284

== ENCOUNTER 2024-12-23 20:59 | Emergency (ER) | payer OTHER ==
[2024-12-23 21:10] VITALS: RESP 17; TEMP 98.3; O2SAT 100
--- NOTE | 2024-12-23 21:21 | ERPHSYRPT ---
- History of Present Illness Time Seen by Provider: 12/23/24 21:20 Source: patient Exam Limitations: no limitations Physician History: 24yo f presents via private vehicle for left sided rib pain, worse w/ deep breathing/coughing that has been ongoing for the past several weeks intermittently. Pt reports she has been a longtime smoker, reports frequent episodes of coughing that exacerbate her discomfort. Pt currently reports her pain is resolved. Pt denies any recent trauma to the thorax. Pt denies any recent fevers. Timing/Duration: week(s) (3), intermittent Cough Quality/Degree: moderate Possible Cause: frequent episodes Allergies/Adverse Reactions: metoprolol [From Lopressor] Allergy (Verified 12/23/24 21:10) fentanyl Adverse Reaction (Mild, Verified 12/23/24 21:10) Rapid Heart Beat Home Medications: ALPRAZolam 0.25 MG [xanAX 0.25 MG] 0.25 mg PO DAILY PRN PRN 10/03/24 [History] Hx Tetanus, Diphtheria Vaccination/Date Given: No Hx Influenza Vaccination/Date Given: No Hx Pneumococcal Vaccination/Date Given: No Travel Risk - Emerging Infectious Disease Are you exhibiting symptoms associated with any current EIDs: No Symptoms: Abdominal Pain, Diarrhea - Review of Systems Constitutional: No Symptoms Ears, Nose, & Throat: No Symptoms Respiratory: Cough, No Dyspnea, No Dyspnea on Exertion (ALATORRE), No Stridor, No Wheezing Cardiac: Chest Pain, No Edema, No Palpitations, No Syncope Abdominal/Gastrointestinal: No Symptoms - Past Medical History Pertinent Past Medical History: Yes Neurological History: No Pertinent History ENT History: No Pertinent History Cardiac History: Arrhythmia Respiratory History: Asthma Endocrine Medical History: Hypoglycemia Musculoskeletal History: No Pertinent History GI Medical History: GERD, Irritable Bowel History: No Pertinent History Psycho-Social History: Anxiety, Bipolar, Panic Disorder Female Reproductive Disorders: No Pertinent History Other Medical History: anemia, tachycardia, PTSD, nutcracker syndrome.PERKINS - Past Surgical History Past Surgical History: Yes Neuro Surgical History: No Pertinent History Cardiac: No Pertinent History Respiratory: No Pertinent History Gastrointestinal: No Pertinent History Genitourinary: No Pertinent History Musculoskeletal: No Pertinent History Female Surgical History: No Pertinent History Other Surgical History: endoscopy,TEETH EXTRACTION - Female History Hx Last Menstrual Period: 09/30/2023 Hx Now: No - Social History Smoking Status: Current every day smoker How long have you smoked: 15 years Exposure to second hand smoke: No Drug Use: none - Social Determinants of Health Will the patient participate in the screening: Declined to provide - Nursing Vital Signs Nursing Vital Signs: Initial Vital Signs Pulse Rate 97 H 12/23/24 21:07 Respiratory Rate 17 12/23/24 21:07 Blood Pressure 143/79 12/23/24 21:07 O2 Sat by Pulse Oximetry 97 12/23/24 21:07 Pain Scale Pain Intensity 0 - Physical Exam General Appearance: no apparent distress, alert Respiratory Exam: normal breath sounds, lungs clear, No chest tenderness, No respiratory distress, No airway intact, No accessory muscle use, No crackles/rales, No rhonchi, No wheezing, No stridor, No pleural rub Cardiovascular Exam: regular rate/rhythm, normal heart sounds, normal peripheral pulses, capillary refill <2 sec Gastrointestinal/Abdomen Exam: soft, normal bowel sounds, No tenderness, No distention SpO2 Interpretation: normal SpO2: 100 O2 Delivery: Room Air Ordered Tests: Active Orders 24 hr Category Date Time Status CHEST 2 VIEWS (PA AND LAT) Stat Exams 12/23/24 21:20 Taken HCG QUALITATIVE, URINE Stat Lab 12/23/24 21:38 Completed Lab/Rad Data: Laboratory Results 12/23/24 Range/Units 21:38 Urine HCG, Qual NEGATIVE (NEGATIVE) - Progress Progress: improved Air Movement: good Progress Note: 12/23/24 22:11 likely pleuritic in nature HEART score 1 for smoking hx imaging not suggestive of pna, pneumothorax or rib fracture plan for discharge home with PCP follow up this week - Jarred recommend ibuprofen for discomfort return to ED if: chest discomfort worsens or changes, discomfort occurs outside of deep breathing/coughing, develop difficulties breathing 12/23/24 22:13 Blood Culture(s) Obtained: No Antibiotics given: No Counseled pt/family regarding: diagnosis, need for follow-up, rad results Medical Desision Making - Diagnostic Testing Diagnostic test were ordered, analyzed, and reviewed by me: Yes Radiological Interpretation: Interpreted by me, Reviewed by me - Risk of complications Minimal Risk: Minimal risk of morbidity - Departure Departure Disposition: Home Clinical Impression: Rib pain on left side Condition: Stable Critical Care Time: No Referrals: QIANA HERNANDEZ MD [Primary Care Provider, [facility]] - Follow up/PCP as directed Additional Instructions: plan for discharge home with PCP follow up this week - Jarred recommend ibuprofen for discomfort return to ED if: chest discomfort worsens or changes, discomfort occurs outside of deep breathing/coughing, develop difficulties breathing
[2024-12-23 21:43] LABS: HCG URINE TEST NEGATIVE (NEGATIVE)
[2024-12-23 22:02] VITALS: PULSE 73
[2024-12-23 22:03] VITALS: BP 104/62
--- NOTE | 2024-12-24 07:19 | XRAY ---
Indication: Left rib pain. Comparison: August 29, 2024 PA/lateral chest again demonstrates normal heart, lungs, and bony thorax.
== END 2024-12-23 22:26 | disposition home or self-care (01) ==
LOC: ED 20:59
DX: R07.81 Pleurodynia (principal); Z79.899 Other long term (current) drug therapy; Z72.0 Tobacco use
CPT/HCPCS: 71046; 81025; 99283; 99284

== ENCOUNTER 2025-07-01 23:03 | Emergency (ER) | payer OTHER ==
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
[2025-07-01 23:15] VITALS: TEMP 97.7
[2025-07-01] MEDS: NORCO 5/325 MG PO ONE (23:55)
[2025-07-01] MEDS ORDERED: NORCO 5/325 MG ONE (23:55)
[2025-07-02 00:03] VITALS: BP 116/75; PULSE 75; RESP 19; O2SAT 99
--- NOTE | 2025-07-02 08:46 | XRAY ---
Indication: Pain following injury. Comparison: None 3 view right knee demonstrates minimal medial joint space narrowing. No other bony, articular, or soft tissue abnormalities.
== END 2025-07-02 00:02 | disposition home or self-care (01) ==
LOC: ED 23:03
DX: S80.01XA Contusion of right knee, initial encounter (principal); V40.5XXA Car driver injured in collision with pedestrian or animal in traffic accident, initial encounter; Z79.899 Other long term (current) drug therapy; Z72.0 Tobacco use

== ENCOUNTER 2025-07-14 19:34 | Emergency (ER) | payer OTHER ==
--- NOTE | 2025-07-14 19:48 | ERPHSYRPT ---
- History of Present Illness Time Seen by Provider: 07/14/25 19:43 Source: patient Exam Limitations: no limitations Patient Subjective Stated Complaint: Patient states she has been short of breath today with some mild hyperventilation which she was getting anxious but she thought it might be secondary ascites. Admits to cough. States cough is been going on approximately 3 days. Denies nausea vomiting diarrhea. Admits to smoking a pack per day but did not do it today. States she normally takes inhaler but has not needed it for 6 months. Physician History: 25-year-old female presents the ED secondary to shortness of breath associated c ough. She states that getting worse with her anxiety. Patient states she is recently diagnosed some ascites that is also being evaluated. Denies abdominal pain. Admits to smoking a pack per day. Timing/Duration: day(s) (2) Activities at Onset: none Severity of Dyspnea-Max: mild Severity of Dyspnea-Current: mild Possible Cause: occasional episodes Modifying Factors: Improves With: nothing Associated Symptoms: intermittent, anxiety, cough Allergies/Adverse Reactions: metoprolol [From Lopressor] Allergy (Verified 07/14/25 19:38) fentanyl Adverse Reaction (Mild, Verified 07/14/25 19:38) Rapid Heart Beat metoclopramide [From Reglan] Adverse Reaction (Verified 07/14/25 19:38) Home Medications: ALPRAZolam 0.25 MG [xanAX 0.25 MG] 0.25 mg PO DAILY PRN PRN 10/03/24 [History] Sumatriptan Succinate [Imitrex] 50 mg PO DAILY PRN PRN 03/30/25 [History] Ondansetron [Ondansetron Odt ] 4 mg PO TID PRN 07/14/25 [History] Hx Tetanus, Diphtheria Vaccination/Date Given: Yes Hx Influenza Vaccination/Date Given: No Hx Pneumococcal Vaccination/Date Given: No Travel Risk - Emerging Infectious Disease Are you exhibiting symptoms associated with any current EIDs: No Symptoms: Abdominal Pain, Diarrhea - Review of Systems Eyes: No Symptoms Ears, Nose, & Throat: No Symptoms Respiratory: Cough, Dyspnea, Wheezing Cardiac: No Chest Pain, No Edema, No Syncope Abdominal/Gastrointestinal: Nausea Genitourinary Symptoms: No Symptoms Musculoskeletal: No Symptoms Skin: No Symptoms Neurological: No Symptoms Psychological: No Symptoms Endocrine: No Symptoms - Past Medical History Pertinent Past Medical History: Yes Neurological History: No Pertinent History ENT History: No Pertinent History Cardiac History: Arrhythmia Respiratory History: Asthma Endocrine Medical History: Hypoglycemia Musculoskeletal History: Fibromyalgia GI Medical History: GERD, Irritable Bowel History: No Pertinent History Psycho-Social History: Anxiety, Bipolar, Panic Disorder Female Reproductive Disorders: No Pertinent History Other Medical History: anemia, tachycardia, PTSD, nutcracker syndrome.PERKINS , PICC line placement and removal - Past Surgical History Past Surgical History: Yes Neuro Surgical History: No Pertinent History Cardiac: No Pertinent History Respiratory: No Pertinent History Gastrointestinal: No Pertinent History Genitourinary: No Pertinent History Musculoskeletal: No Pertinent History Female Surgical History: No Pertinent History Other Surgical History: endoscopy,TEETH EXTRACTION - Female History Hx Last Menstrual Period: on it now Hx Now: No - Social History Smoking Status: Current every day smoker How long have you smoked: 16 years Exposure to second hand smoke: No Drug Use: none - Social Determinants of Health Will the patient participate in the screening: Yes Do you worry about a steady place to live?: No In the past 12 months,have you had to go without utilities?: No Transportation Issues: No Has anyone in your support network made you feel unsafe?: No Have you or anyone in your house had to go w/o enough food: No - Nursing Vital Signs Nursing Vital Signs: Initial Vital Signs Temperature 98.7 F 07/14/25 19:37 Pulse Rate 95 H 07/14/25 19:37 Respiratory Rate 16 07/14/25 19:37 Blood Pressure 122/85 07/14/25 19:37 O2 Sat by Pulse Oximetry 100 07/14/25 19:37 Pain Scale Pain Intensity 0 - Physical Exam General Appearance: no apparent distress Eye Exam: PERRL/EOMI Ears, Nose, Throat Exam: pharyngeal erythema, No hearing grossly normal, No nasal congestion, No tonsillar exudate, No tonsillar swelling Neck Exam: normal inspection, supple Respiratory Exam: rhonchi (Mild diffuse rhonchi.), wheezing (Mild wheezing on the right.), No chest tenderness Cardiovascular/Chest Exam: normal heart sounds, regular rate/rhythm Abdominal/Gastrointestinal Exam: soft, No tenderness, No distention, No mass Extremity Exam: non-tender, normal range of motion, normal inspection, no calf tenderness, no pedal edema Neurologic Exam: alert, oriented x 3, cooperative, parker II-XII nml as tested, sensation nml, No motor deficits Skin Exam: normal color, warm, No dry SpO2 Interpretation: normal SpO2: 100 - Radiology Exams Chest X-ray Interpretation: Discussed w/ radiologist (No acute cardiopulmonary findings.) Ordered Tests: Active Orders 24 hr Category Date Time Status CHEST 2 VIEWS (PA AND LAT) Stat Exams 07/14/25 19:44 Completed Respiratory Therapy Assessment DAILY RT 07/14/25 19:53 Completed Medication Summary Discontinued Medications Generic Name Dose Route Start Last Admin Trade Name Bianca PRN Reason Stop Dose Admin Albuterol/Ipratropium 3 ml 07/14/25 19:44 07/14/25 19:52 Ipratropium/Albuterol Sulfate 3 Ml Ampul.Neb IH 07/14/25 19:45 3 ml STAT ONE Administration Albuterol/Ipratropium Confirm 07/14/25 19:50 Ipratropium/Albuterol Sulfate 3 Ml Ampul.Neb Administered 07/14/25 19:51 Dose 3 ml IH .STK-MED ONE - Progress Progress: improved Air Movement: good Progress Note: 07/14/25 20:50 2049-: On reevaluation, the patient states she has symptomatically improved. Reauscultation of lungs noted clear air exchange without significant wheezing or rhonchi. Had continued discussion with patient regarding fact that this is not infectious and does not have a pneumonia. Encouraged her to stop smoking. States she does need a new prescription for albuterol inhaler. 07/14/25 20:51 Medical decision making: Low suspicion for pneumonia or other infectious etiology. Signs symptoms consistent with asthma exacerbation reactive airway disease. Patient has a history of this. Also still continues to smoke. Complexity of problems would be moderate she complained of anxiety, has history of ascites which she is being followed up for, and asthma. Complexity would be moderate secondary to the comorbidities history of smoking. Risk of complications are minimal and she has a history of asthma significantly improved with albuterol Atrovent neb.Dizziness secondary ascites as her abdomen is nondistended and there are no fluid collections noted in chest x-ray. Patient significant proved with nebulizer DuoNeb treatment. - Departure Departure Disposition: Home Clinical Impression: Asthma exacerbation Condition: Good Critical Care Time: No Referrals: QIANA HERNANDEZ MD [Primary Care Provider, [facility]] - Follow up/PCP as directed Instructions: Asthma, Adult (DC) Additional Instructions: Discharge/Care Plan TEODORO COREAS was seen on 07/14/25 in the Emergency Room. The patient was counseled regarding Diagnosis,Lab results, Imaging studies, need for follow up and when to return to the Emergency Room. Prescriptions given: Discharge Note I have spoken with the patient and/or caregivers. I have explained the patient's condition, diagnosis and treatment plan based on the information available to me at this time. I have answered the patient's and/or caregiver's questions and addressed any concerns. The patient and/or caregivers have as good understanding of the patient's diagnosis, condition and treatment plan as can be expected at this point. The vital signs have been stable. The patient's condition is stable and appropriate for discharge from the emergency department. The patient will pursue further outpatient evaluation with the primary care physician or other designated or consulting physician as outlined in the discharge instructions. The patient and/or caregivers are agreeable to this plan of care and follow-up instructions have been explained in detail. The patient and/or caregivers have received these instruction. The patient/and or caregivers are aware that any significant change in condition or worsening of symptoms should prompt an immediate return to this or the closest emergency department or call 911. Stop smoking. Follow-up with primary provider this week for continued valuation and monitoring. Return to the ED if fever, unable to keep things down, trouble breathing, worsening, or further concerns. Prescriptions: Albuterol 8 gm Mdi Hfa [Ventolin Hfa MDI] 8 gm IH Q4H #1 Albuterol 8 gm Mdi Hfa [Ventolin Hfa MDI] 8 gm IH Q4H #1 inhaler
[2025-07-14 19:50] VITALS: TEMP 98.7
[2025-07-14] MEDS ORDERED: DUONEB 0.5-3 MG/3 ml Neb IH ONE (19:50)
[2025-07-14] MEDS: DUONEB 0.5-3 MG/3 ml Neb IH ONE (19:52)
[2025-07-14 19:55] VITALS: RESP 18
--- NOTE | 2025-07-14 20:20 | XRAY ---
Indication: Short of breath. Cough. Comparison: December 23, 2024 PA/lateral chest again demonstrates normal heart, lungs, and bony thorax.
[2025-07-14 21:03] VITALS: BP 100/65; PULSE 74
[2025-07-14 22:32] VITALS: O2SAT 100
== END 2025-07-14 21:08 | disposition home or self-care (01) ==
LOC: ED 19:34
DX: J45.901 Unspecified asthma with (acute) exacerbation (principal); R06.02 Shortness of breath; R05.9 Cough, unspecified; Z79.899 Other long term (current) drug therapy; Z72.0 Tobacco use